=== PATIENT | female | born 1965 | race Caucasian/White ===

== ENCOUNTER 2018-07-25 06:59 | Day surgery (SDC) | payer OTHER, SELFPAY ==
[2018-07-25 07:21] VITALS: BP 149/89; PULSE 69; RESP 16; TEMP 36.7; O2SAT 98; BMI 40.8
[2018-07-25 07:32] LABS: Internal QC Validated? YES +Cl - CLEAR BKGD; Pregnancy, Urine Negative Negative
--- NOTE | 2018-07-25 07:51 | H&P.OPEN ---
History of Present Illness Date of Admission: 07/25/18 The patient is a 52 year old F presents for screening for colon cancer. Patient states she has daily bowel movements denies any blood denies any abdominal pain. Patient has no immediate family history of colon cancer however her maternal uncle had it in his 50s along with maternal cousin in his 50s as well. Patient has never had a colonoscopy in the past. Past Medical/Surgical History - Planned Operation Planned Operative Procedure/s: COLONOSCOPY Date of Operative Procedure: 07/25/18 Permit Signed: Yes S.O.S: No Is This Patient Having a Total Joint: No - Previous Hospitalizations/Surgeries HX Hospitalizations: No HX of Surgeries: TONSILS Any Problems With Anesthesia: No You/Your Family Experience Fever (Hyperthermia) With Anes: No Cholinesterase deficiency: No - Cardiovascular Hx Chest Pain within Last 2 months: No Hx of Irregular Heartbeat and/or Afib: No Hx Heart Attack: No Hx Congestive Heart Failure: No Hx Rheumatic Fever: No Hx Hypertension: No Hx Internal Defibrillator: No Hx Pacemaker: No Hx Cardiac Catheterization: No Hx Cardiac Surgery/Stents/Etc.: No Hx Stress Test: No HX Edema: Yes - JENNI ANKLES Hx Pain in Legs when Walking/Leg Cramps: No - Respiratory Chronic Cough: No HX of Shortness of Breath: No Hoarseness: No Hx Chronic Obstructive Pulmonary Disease (COPD): No Hx Asthma: No Hx Emphysema: No Hx Sleep Apnea: No Hx Oxygen Use at Home: No Hx Respiratory Tract Infection/Cold (presently): No Do You Snore Loudly (louder than talking or can be heard): No Do You Often Feel Tired/ Fatigued/ Sleepy Dring Daytime?: No Has Anyone Observed You Stop Breathing During Sleep?: No Result (for STOP score): Negative Hx Smoking: No Smoking Status: Never smoker - Gastrointestinal Hx Gastroesophageal Reflux: No Hx Gastrointestinal Disorders: No Hx Gastrointestinal Bleed: No Hx Ulcer: No Hx Hiatal Hernia: No Difficulty Chewing/Swallowing: No Recent Onset of Swallowing Problems: No Special diet followed at home: No Hx Unplanned Weight Loss of 20#: No HX Unplanned Weight Gain of 20#: No - Neurological Hx Seizures: No HX Syncope/Blackout Spells/Unconsciousness: No Hx CVA/Stroke: No Hx Transient Ischemic Attacks (TIA): No Hx Multiple Sclerosis: No Hx Parkinson's Disease: No Hx Head/Neck Injury: No Hx Headaches: No Hx Back Injury/Pain: Yes - SEE'S CHIROPRACTOR ROUTINELY Recent Onset of Speech Difficulty: No Restless Legs: No Does patient have nerve stimulator: No - Blood Disorder Hx Leukemia: No Bleeding Tendencies: No Hx Deep Vein Thrombosis: No Hx High Cholesterol: No Blood Transmitted Disease: No Hx Hepatitis: No Hx Cirrhosis: No Hx Anemia: No Hx Blood Disorders: No - Reproduction : No Is Patient Lactating: No Hx Hysterectomy: No Hx Tubal Ligation: No Are You Post Menopause: No Pt Instructed Not To Have Any Sex From Now Until Surgery: No - Genitourinary Hx Renal Disease: No - Musculoskeletal Hx Arthritis: No Hx Rheumatoid Arthritis: No Hx Gout: No Recent Onset of an Orthopedic Problem: Yes - L LEG ONLY BENDS SO FAR-ASK PT! - Endocrine Hx Diabetes: No Thyroid Disease: No Hx Steroid Therapy: No - Psycho/Social Hx Substance Use: No Hx Alcohol Use: No Hx Anxiety: No Hx Depression: No Mental Illness: No Hx Dementia: No - Miscellaneous Hx Cancer: No Recent Exposure to Contagious Disease: No Active MRSA: No Hx of C-Diff: No Any Loose Teeth: No Allergies No Known Allergies Allergy (Verified 07/20/18 11:21) - Discharge Is Pt Admitted From a Alf, or a Custodial: No Who Could Help: SISTER After D/C, Where Do you Plan to Go: Return Home - Physical Exam General: Alert, Oriented x3, Cooperative, No apparent distress HEENT: Atraumatic Lungs: Normal air movement Cardiovascular: Regular rate Abdomen: Soft, Non Tender - No peritoneal signs, Non-Distended Extremities: No clubbing, No cyanosis, No edema Skin: No rashes Neurological: Cranial nerves II-XII grossly intact Psych/Mental Status: Normal Affect Vital Signs Temp Pulse Resp BP Pulse Ox 98.1 F 69 16 149/89 H 98 07/25/18 07:21 07/25/18 07:21 07/25/18 07:21 07/25/18 07:21 07/25/18 07:21 Oxygen Delivery Method Room Air Weight: 253 lb 4.978 oz Body Mass Index (BMI) 40.8 Laboratory Tests Past 24 Hrs 07/25/18 07:08 Urine Test Negative Assessment/Plan 52-year-old female for screening for colon cancer Surgery Risks - Colonoscopy I discussed with the patient the risks of the procedure: Yes Risks Include but are not Limited To: Risks include but are not limited to: Bleeding, perforation requiring further surgery, inability to complete colonoscopy requiring barium enema. Patient no further questions at this time.
[2018-07-25 08:21] VITALS: BP 137/91; BP 148/89; PULSE 78; RESP 16; TEMP 36.2; O2SAT 96
[2018-07-25 08:26] VITALS: BP 140/94; BP 148/89; PULSE 67; RESP 16; O2SAT 95
[2018-07-25 08:31] VITALS: BP 147/93; BP 148/89; PULSE 60; RESP 16; O2SAT 95
[2018-07-25 08:36] VITALS: BP 136/91; BP 148/89; PULSE 67; RESP 16; TEMP 36.6; O2SAT 98
[2018-07-25 08:55] VITALS: BP 148/89
--- NOTE | 2018-07-30 10:25 | OP.ENDO_ITS ---
Patient Name: Whit Mackenzie Procedure Date: 07/25/2018 7:26 AM Date of : 1965 Age: 52 Procedure: Colonoscopy Indications: Screening for colorectal malignant neoplasm Providers: Lona Birmingham MD Referring MD: Sheri Tobias Medicines: Monitored Anesthesia Care Patient Profile: This is a 52 year old female. Last Colonoscopy: none. The patient's first colonoscopy is today. Complications: No immediate complications. Procedure: Pre-Anesthesia Assessment: - Prior to the procedure, a History and Physical was performed, and patient medications and allergies were reviewed. The patient's tolerance of previous anesthesia was also reviewed. The risks and benefits of the procedure and the sedation options and risks were discussed with the patient. All questions were answered, and informed consent was obtained. Prior Anticoagulants: The patient has taken no previous anticoagulant or antiplatelet agents. ASA Grade Assessment: III - A patient with severe systemic disease. After reviewing the risks and benefits, the patient was deemed in satisfactory condition to undergo the procedure. After I obtained informed consent, the scope was passed under direct vision. Throughout the procedure, the patient's blood pressure, pulse, and oxygen saturations were monitored continuously. The colonoscope was introduced through the anus and advanced to the cecum, identified by the appendiceal orifice, ileocecal valve and palpation. The colonoscopy was performed without difficulty. The patient tolerated the procedure well. The quality of the bowel preparation was good. Scope In: 7:59:17 AM Scope Withdrawal Time 0 hours 8 minutes 26 seconds Scope Out: 8:16:44 AM Total Procedure Duration Time 0 hours 17 minutes 27 seconds Findings: The entire examined colon appeared normal on direct and retroflexion views. The perianal and digital rectal examinations were normal. Impression: - The entire examined colon is normal on direct and retroflexion views. - No specimens collected. Recommendation: - Discharge patient to home. - Continue present medications. - Repeat colonoscopy in 10 years for screening purposes. Procedure Code(s): --- Professional --- G0121, PT, Colorectal cancer screening; colonoscopy on individual not meeting criteria for high risk CPT copyright 2017 [employer] [place] [employer]. All rights reserved. The codes documented in this report are preliminary and upon toll transmission worker review may be revised to meet current compliance requirements. MD Lona Simons MD 07/25/2018 8:22:02 AM This report has been signed electronically. Number of Addenda: 0 Note Initiated On: 07/25/2018 7:26 AM
--- OUTSIDE RECORDS SUMMARY | 2018-09-28 22:19 | XMS RPT_ITS ---
:1965 Author Organization [facility] Care Team Providers Name Role Phone Lona Birmingham Attending Unavailable Lona Birmingham Referring Unavailable Malys, Sheri Primary Care Unavailable Lona Birmingham Attending Unavailable Robotham, Lona Referring Unavailable Malys, Sheri Primary Care Unavailable Robotrobert, Lona Consulting Unavailable Nurse, Surgery Attending Unavailable Malys, Sheri Referring Unavailable PROBLEMS PROBLEMS No Problem Records FoundPROCEDURES PROCEDURES No Procedure Records FoundRESULTS RESULTS OPERATIVE REPORT - Observed: 07/30/2018 Status: F Source: [place] [facility] 11:22 AM [facility] [place] REPOSITORY [facility] Medical Records Department [address] [place] [address] Operative Report - Endoscopy MR#: [id number] Acct: [id number] Name: DAVID CRAVEN Rep #: [id number] : 1965 52 From: Lona Birmingham MD PCP: Sheri Tobias DO Status: [facility] Patient Name: David Craven Procedure Date: 07/25/2018 7:26 AM Date of : 1965 Age: 52 Procedure: Colonoscopy Indications: Screening for colorectal malignant neoplasm Providers: Lona Birmingham MD Referring MD: Sheri Tobias Medicines: Monitored Anesthesia Care Patient Profile: This is a 52 year old female. Last Colonoscopy: none. The patient's first colonoscopy is today. Complications: No immediate complications. Procedure: Pre-Anesthesia Assessment: - Prior to the procedure, a History and Physical was performed, and patient medications and allergies were reviewed. The patient's tolerance of previous anesthesia was also reviewed. The risks and benefits of the procedure and the sedation options and risks were discussed with the patient. All questions were answered, and informed consent was obtained. Prior Anticoagulants: The patient has taken no previous anticoagulant or antiplatelet agents. ASA Grade Assessment: III - A patient with severe systemic disease. After reviewing the risks and benefits, the patient was deemed in satisfactory condition to undergo the procedure. After I obtained informed consent, the scope was passed under direct vision. Throughout the procedure, the patient's blood pressure, pulse, and oxygen saturations were monitored continuously. The colonoscope was introduced through the anus and advanced to the cecum, identified by the appendiceal orifice, ileocecal valve and palpation. The colonoscopy was performed without difficulty. The patient tolerated the procedure well. The quality of the bowel preparation was good. Scope In: 7:59:17 AM Scope Withdrawal Time 0 hours 8 minutes 26 seconds Scope Out: 8:16:44 AM Total Procedure Duration Time 0 hours 17 minutes 27 seconds Findings: The entire examined colon appeared normal on direct and retroflexion views. The perianal and digital rectal examinations were normal. Impression: - The entire examined colon is normal on direct and retroflexion views. - No specimens collected. Recommendation: - Discharge patient to home. - Continue present medications. - Repeat colonoscopy in 10 years for screening purposes. Procedure Code(s): --- Professional --- G0121, PT, Colorectal cancer screening; colonoscopy on individual not meeting criteria for high risk CPT copyright 2017 [employer]. All rights reserved. The codes documented in this report are preliminary and upon tax lawyer review may be revised to meet current compliance requirements. MD Lona Simons MD 07/25/2018 8:22:02 AM This report has been signed electronically. Number of Addenda: 0 Note Initiated On: 07/25/2018 7:26 AM 07/25/18 1452 Date Lona Birmingham MD Cosigner Signature: Date (if indicated) CC: Sheri Tobias DO; Lona Birmingham MD Date Dictated: 07/25/18 0726 Date Transcribed: Wrapper Operator: TR Signed HISTORY AND PHYSICAL Observed: 07/25/2018 Status: F Source: [place] [facility] 7:53 AM [facility] [place] RE[facility]IT[facility] Medical Records Department [address] [place] [address] [place] [address] History and Physical 07/25/18 0751 MR#: [id number] Acct: [id number] Name: HERBERDAVID Bev Rep #: [id number] : 1965 52 From: Lona Birmingham MD PCP: Sheri Tobias DO Status: [facility] Location: [place] [address] History of Present Illness Date of Admission: 07/25/18 The patient is a 52 year old F presents for screening for colon cancer. Patient states she has daily bowel movements denies any blood denies any abdominal pain. Patient has no immediate family history of colon cancer however her maternal uncle had it in his 50s along with maternal cousin in his 50s as well. Patient has never had a colonoscopy in the past. Past Medical/Surgical History - Planned Operation Planned Operative Procedure/s: COLONOSCOPY Date of Operative Procedure: 07/25/18 Permit Signed: Yes S.O.S: No Is This Patient Having a Total Joint: No - Previous Hospitalizations/Surgeries HX Hospitalizations: No HX of Surgeries: TONSILS Any Problems With Anesthesia: No You/Your Family Experience Fever (Hyperthermia) With Anes: No Cholinesterase deficiency: No - Cardiovascular Hx Chest Pain within Last 2 months: No Hx of Irregular Heartbeat and/or Afib: No Hx Heart Attack: No Hx Congestive Heart Failure: No Hx Rheumatic Fever: No Hx Hypertension: No Hx Internal Defibrillator: No Hx Pacemaker: No Hx Cardiac Catheterization: No Hx Cardiac Surgery/Stents/Etc.: No Hx Stress Test: No HX Edema: Yes - JENNI ANKLES Hx Pain in Legs when Walking/Leg Cramps: No - Respiratory Chronic Cough: No HX of Shortness of Breath: No Hoarseness: No Hx Chronic Obstructive Pulmonary Disease (COPD): No Hx Asthma: No Hx Emphysema: No Hx Sleep Apnea: No Hx Oxygen Use at Home: No Hx Respiratory Tract Infection/Cold (presently): No Do You Snore Loudly (louder than talking or can be heard): No Do You Often Feel Tired/ Fatigued/ Sleepy Dring Daytime?: No Has Anyone Observed You Stop Breathing During Sleep?: No Result (for STOP score): Negative Hx Smoking: No Smoking Status: Never smoker - Gastrointestinal Hx Gastroesophageal Reflux: No Hx Gastrointestinal Disorders: No Hx Gastrointestinal Bleed: No Hx Ulcer: No Hx Hiatal Hernia: No Difficulty Chewing/Swallowing: No Recent Onset of Swallowing Problems: No Special diet followed at home: No Hx Unplanned Weight Loss of 20#: No HX Unplanned Weight Gain of 20#: No - Neurological Hx Seizures: No HX Syncope/Blackout Spells/Unconsciousness: No Hx CVA/Stroke: No Hx Transient Ischemic Attacks (TIA): No Hx Multiple Sclerosis: No Hx Parkinson's Disease: No Hx Head/Neck Injury: No Hx Headaches: No Hx Back Injury/Pain: Yes - SEE'S CHIROPRACTOR ROUTINELY Recent Onset of Speech Difficulty: No Restless Legs: No Does patient have nerve stimulator: No - Blood Disorder Hx Leukemia: No Bleeding Tendencies: No Hx Deep Vein Thrombosis: No Hx High Cholesterol: No Blood Transmitted Disease: No Hx Hepatitis: No Hx Cirrhosis: No Hx Anemia: No Hx Blood Disorders: No - Reproduction : No Is Patient Lactating: No Hx Hysterectomy: No Hx Tubal Ligation: No Are You Post Menopause: No Pt Instructed Not To Have Any Sex From Now Until Surgery: No - Genitourinary Hx Renal Disease: No - Musculoskeletal Hx Arthritis: No Hx Rheumatoid Arthritis: No Hx Gout: No Recent Onset of an Orthopedic Problem: Yes - L LEG ONLY BENDS SO FAR-ASK PT! - Endocrine Hx Diabetes: No Thyroid Disease: No Hx Steroid Therapy: No - Psycho/Social Hx Substance Use: No Hx Alcohol Use: No Hx Anxiety: No Hx Depression: No Mental Illness: No Hx Dementia: No - Miscellaneous Hx Cancer: No Recent Exposure to Contagious Disease: No Active MRSA: No Hx of C-Diff: No Any Loose Teeth: No Allergies No Known Allergies Allergy (Verified 07/20/18 11:21) - Discharge Is Pt Admitted From a Longterm, or a Mcc: No Who Could Help: SISTER After D/C, Where Do you Plan to Go: Return Home - Physical Exam General: Alert, Oriented x3, Cooperative, No apparent distress HEENT: Atraumatic Lungs: Normal air movement Cardiovascular: Regular rate Abdomen: Soft, Non Tender - No peritoneal signs, Non-Distended Extremities: No clubbing, No cyanosis, No edema Skin: No rashes Neurological: Cranial nerves II-XII grossly intact Psych/Mental Status: Normal Affect Vital Signs Temp Pulse Resp BP Pulse Ox 98.1 F 69 16 149/89 H 98 07/25/18 07:21 07/25/18 07:21 07/25/18 07:21 07/25/18 07:21 07/25/18 07:21 Oxygen Delivery Method Room Air Weight: 253 lb 4.978 oz Body Mass Index (BMI) 40.8 Laboratory Tests Past 24 Hrs Urine Test Negative Assessment/Plan 52-year-old female for screening for colon cancer Surgery Risks - Colonoscopy I discussed with the patient the risks of the procedure: Yes Risks Include but are not Limited To: Risks include but are not limited to: Bleeding, perforation requiring further surgery, inability to complete colonoscopy requiring barium enema. Patient no further questions at this time. 07/25/18 0753 <Electronically signed by Lona Birmingham MD> Date Lona Birmingham MD Cosigner Signature: Date (if applicable) CC: Sheri Tobias DO; Lona Birmingham MD Signed ,URINE Collected: 07/25/2018 Status: F Source: [place] 7:08 AM [facility] REPOSITORY Order Comment: Reason for Laboratory Test PRE-OP TYPE CODE TESTS RESULT OUT OF REFERENCE UNITS RANGE LAB L400.8000 Negative Normal HCGUQUAL Negative Result Comment: Very dilute urine specimens, as indicated by a low specific gravity, may not contain guest services representative levels of hCG. If is still suspected, a first morning urine specimen should be collected 48 hours later and tested. Performed By: #### [id number] #### [facility] [address] [place], [address] ALLERGIES ALLERGIES DATE TYPE / CODE NAME / CODE REACTION SEVERITY SOURCE 07/20/2018 Drug No Known Unknown [facility] Allergy/4160 Allergies/F00 Hospital 27986(SNOMED [id number](RXNOR Repository CT) M) ENCOUNTERS ENCOUNTERS ADMIT/DISCHARGE ACCOUNT ADMITTING ENCOUNTER LOCATION SOURCE NUMBER CLASS 07/25/2018 [id number] Ambulatory BMSBuilding:B Jany 1 [place].CF.[facility] Repository 07/25/2018/ [id number] Ambulatory [place] Jany 9 8 [facility] ing:ENRoom: Repository AC11 06/11/2018/ [id number] Ambulatory BMSBuilding:B Jany 8 0 MS.[facility] Repository PAYERS PAYERS ENCOUNTER GUARANTOR PAYER SUBSCRIBER SOURCE 07/25/2018 DAVID [id number] Insurance:[facility]: [facility] icy Number: [id number] [id number] [facility] , [place] [address]Ozy: Date:[id number], [place] () [address]WP: 07/25/2018 Secondary NOT GIVENUNK Jany Insurance:SELF PAY [facility] Number: Effective Repository Date:2018-07-25 07/25/2018 DAVID [id number] S Insurance:[facility]: [facility] icy Number: [id number] Health Systems [id number] [facility] , [place] [address]Afj: Date:[id number] [address] [place] [address] () [phone]: 07/25/2018 Secondary NOT GIVENUNK Jany Insurance:SELF PAY [facility] Number: Effective Repository Date:2018-06-11 06/11/2018 DAVID Pablo Primary DAVID [id number] Insurance:[employer] MILLERDOB: [facility] icy Number: [id number] RD[place] [id number] [place], [place] [address]Bao: Date:1559-93-94[address], [place] ) [phone]: 06/11/2018 Secondary NOT GIVENUNK [place] Insurance:SELF PAY [facility] Number: Effective Repository Date:2018-06-11
== END 2018-07-25 09:23 | disposition home or self-care (01) ==
LOC: EN 07:00 → AC 07:02
PROVIDERS: Anesthesiology; Family Provider Family Medicine; PCP Family Medicine; Referring Provider Surgery; Visit Provider Surgery
PROC: 0DJD8ZZ Inspection of Lower Intestinal Tract, Via Natural or Artificial Opening Endoscopic (ICD-10-PCS; CPT 45378; principal; 2018-07-25 07:55)
DX: Z12.11 Encounter for screening for malignant neoplasm of colon (principal)
CPT/HCPCS: 45378; 81025; J7120

== ENCOUNTER → 2019-05-23 08:05 | Outpatient (CLI) | payer OTHER, SELFPAY ==
--- NOTE | 2019-05-23 08:07 | BI_ITS ---
MAMMOGRAPHY - BILATERAL SCREENING REASON FOR EXAM: Female, 53 years old. Routine annual screening examination. PERTINENT HISTORY: Non-contributory. TECHNIQUE: Digital bilateral breast sekou (3D mammographic acquisition) in the CC and MLO projections. 2-D mediolateral oblique (MLO) and craniocaudad (CC) views of both breasts were obtained. CAD: Full Field Digital Mammography with Computer Added Detection was performed. COMPARISON: Comparison is made with prior study dated May 27, 2017 and October 03, 2014. FINDINGS: Breast Composition: The breasts are almost entirely fatty. There are no dominant masses or suspicious calcifications. Stable benign-appearing right axillary lymph nodes. No other significant abnormalities are identified. There has been no significant change since the prior study. BI/SCREEN MAMM (CAD) W/SEKOU BILAT IMPRESSION: Stable bilateral screening mammogram. Yearly follow-up mammogram recommended. (A) ASSESSMENT CATEGORY: BIRADS Category 2: Benign. A letter regarding these results will be sent to the patient by the facility within 30 days. Approximately 10% of breast cancers are not detected by mammography. A normal mammogram should not delay biopsy of a clinically suspicious abnormality. [id number] Electronically Signed: Elpidio Berkowitz, at 9:35 EST , Service support ,
--- NOTE | 2019-05-23 08:26 | RAD_ITS ---
HISTORY: Pain in left hip for sometime getting worse. Pain in lower back at times with stiffness. No known injury. 7 views of the lumbar spine. These include AP, bilateral oblique, coned-down lateral of the L5-S1 interspace, neutral lateral, flexion lateral, and extension lateral. No prior imaging of the lumbar spine. Findings: In the neutral image L4 is anteriorly subluxed on L5 by 3 mm. This remains constant in the extension image but may be slightly accentuated in the flexion image. In the flexion image there is an evoked anterior subluxation of L3 on L4 and minimally L2 on L3. In the flexion image there is the production of disc gas phenomenon, likely due to vacuum phenomenon of the flexion. The gas once again likely become soluble with the neutral and the extension image. Vertebral body height is well preserved. Endplate sclerosis with enthesophytes are present at many levels. There is some facet arthropathy. This is greatest at the lower lumbar spine. No fractures are perceived. Bowel gas pattern is normal. RAD/L/S Spine Comp/w Bending Views IMPRESSION: Multilevel degenerative disc disease. Anterior enthesophytes. Mild subluxation of L3 on L4 and L2 on L3 accentuated with flexion and reduced with extension and neutral. at 2216 Reported and signed by: Jignesh Spear MD Electronically Signed: Jignesh Spear MD at 22:15 EST Tel , Service support ,
--- NOTE | 2019-05-23 08:56 | RAD_ITS ---
HISTORY: Pain in left hip for sometime getting worse. Pain in lower back at times with stiffness. Exam is AP pelvis and 2 views of the left hip. No prior imaging of the left hip. Findings: Severe osteoarthritis is present within the left hip. This arthritis is manifested by bony remodeling, [id number] sclerosis with obliteration of the joint space, osteophytes, and large subcortical cystic degenerative change both within the acetabulum and the femoral head. The femoral head is subluxed superior and lateral in the left acetabulum due to the chronicity of the disease. There is some arthritic disease within the right femoral head as well. Pelvic phleboliths are present. RAD/HIP, UNI W/ Pelvis 2-3 Views IMPRESSION: Severe left hip arthritis with bony remodeling and superior and lateral subluxation of the left femoral head with remodeling to the left acetabulum at 0102 Reported and signed by: Jignesh Spear MD Electronically Signed: Jignesh Spear MD at 1:01 EST Tel , Service support ,
== END ==
PROVIDERS: Family Provider Family Medicine; PCP Family Medicine; Referring Provider Family Medicine; Visit Provider Family Medicine
DX: Z12.31 Encounter for screening mammogram for malignant neoplasm of breast (principal); M16.12 Unilateral primary osteoarthritis, left hip; M54.5 Low back pain; R29.898 Other symptoms and signs involving the musculoskeletal system
CPT/HCPCS: 72114; 73502; 77063; 77067

== ENCOUNTER → 2019-06-20 10:45 | Outpatient (CLI) | payer OTHER, SELFPAY ==
--- NOTE | 2019-06-20 10:48 | MRI_ITS ---
STUDY: MRI LUMBAR SPINE WITHOUT CONTRAST REASON FOR EXAM: Female, 53 years old. Low back pain, left leg pain, left hip pain. TECHNIQUE: Standardized fat and water weighted pulse sequences were obtained in the sagittal and axial planes. COMPARISON: X-ray 05/23/2019 FINDINGS: T12-L1: Normal endplates. Normal disc height, hydration and morphology. Normal bilateral facet joints. Normal central canal and bilateral lateral recesses. Normal bilateral intervertebral neural foramina. Normal lumbar lordosis. There is no substantial scoliosis. Normal conus medullaris that terminates at the L1/L2. L1-2: Normal endplates. Normal disc height, hydration and morphology. Normal bilateral facet joints. Normal central canal and bilateral lateral recesses. Normal bilateral intervertebral neural foramina. L2-3: Mild bilobed disc protrusion produces mild spinal stenosis and mild bilateral neural foraminal stenosis. L3-4: Mild bilateral facet hypertrophy and ligament flavum hypertrophy. Mild broad disc protrusion asymmetric to the left produces mild spinal stenosis with mild bilateral lateral recess stenosis, mild right neural foraminal stenosis, and moderate left neural foraminal stenosis with abutment of the exiting left L3 nerve root laterally. L4-5: Mild bilateral facet hypertrophy and ligament flavum hypertrophy. Mild broad disc protrusion produces mild spinal stenosis with mild bilateral lateral recess stenosis and mild bilateral neural foraminal stenosis. L5-S1: Mild bilateral facet hypertrophy. Mild broad disc protrusion produces mild spinal stenosis and mild bilateral neural foraminal stenosis. Normal visualized sacral ala. Normal visualized paraspinous soft tissue structures. MRI/Spine Lumbar (Routine) IMPRESSION: Mild diffuse degenerative disc disease as described above. Electronically Signed: Pierce West MD at 16:42 EST Tel , Service support ,
== END ==
PROVIDERS: Family Provider Family Medicine; PCP Family Medicine; Referring Provider Family Medicine; Visit Provider Family Medicine
DX: M54.16 Radiculopathy, lumbar region (principal)
CPT/HCPCS: 72148

== ENCOUNTER → 2019-08-07 08:03 | Outpatient (CLI) | payer OTHER, SELFPAY ==
[2019-08-01 10:22] VITALS: BMI 42.7
--- NOTE | 2019-08-07 08:05 | CT_ITS ---
STUDY: CT SCAN LOWER EXTREMITY WITHOUT IV CONTRAST LEFT REASON FOR EXAM: Female, 53 years old. Left hip osteoarthritis, pain x years, no known injury. [facility] protocol. RADIATION DOSAGE (If Supplied By Facility): CTDIvol = ( 26.88 ) mGy, DLP = ( 1757.71 ) mGycm. Individualized dose optimization techniques were used for this CT.? TECHNIQUE: Multiple axial tomographic images were obtained of both hip joints as well as the knee joints. Coronal and sagittal reconstructions obtained as well. The DANELLE protocol was followed. COMPARISON: None. FINDINGS: This appearance of the degenerative changes of both sacroiliac joints worse on the right side with the spur formation along the iliac aspect of the joint. Marked degree of osteoarthritis of the left hip joint with subchondral cysts worse in the superolateral aspect of the femoral head as well as the acetabulum. There is also evidence of an acetabular spur superiorly as well as medially. I suspect femoral acetabular impingement. The knee joints are unremarkable. CT/Extremity Lower without Contra IMPRESSION: Marked degree of osteoarthritis of the left hip joint with subchondral cysts involving the femoral head as well as the acetabulum with degenerative spurring of the acetabulum, superolaterally as well as inferomedially causing femoral acetabular impingement. Electronically Signed: Elpidio Berkowitz, at 10:37 EST , Service support ,
== END ==
PROVIDERS: PCP Family Medicine; Referring Provider Specialist; Visit Provider Specialist
DX: M16.7 Other unilateral secondary osteoarthritis of hip (principal)
CPT/HCPCS: 73700

== ENCOUNTER → 2019-08-13 08:34 | Outpatient (CLI) | payer OTHER, SELFPAY ==
[2019-08-09 14:10] VITALS: BMI 42.7
--- NOTE | 2019-08-13 08:35 | STEWCON_ITS ---
Reason For Study: Pre-OP Stress Results Protocol: Dobutamine Stress With Definity Maximum Predicted HR: 169 bpm Target HR: 144 bpm % Maximum Predicted HR: 50 % Heart Stage Duration Rate BP Dose Comment (mm:ss) (bpm) BASELINE 64 142/83 4 CC DEFINITY total for test STAGE 1 3:58 85 107/4010.0097/57 ORIGINAL BP, RECHECKED AND WAS 107/40 Noted heart rate to drop to 45, BP low, chest pain, hot and STAGE 2 3:00 51 104/4520.00funny feeling. Stopped test, Normal Saline 500cc bolus started. Paged Dr. Gomes, O2 placed at 2L NC. States feeling better, Cola given and Marleny Doones, Tolerated RECOVERY 70 120/70 well Stress Duration: 6:58 mm:ss Maximum Stress HR: 85 bpm Baseline Echocardiogram Findings Stress Echo Wall motion Data Resting WM Intermediate WM Stress WM Interpretation Summary Dobutamine stress echocardiogram. Indication: Preoperative evaluation. Stress protocol: Resting EKG demonstrates normal sinus rhythm with a rate of 60 bpm. Resting blood pressure is 142/83 mmHg. Dobutamine infusion was begun starting at 10 mcg/kg/min. It was increased in 3-minute increments to a peak of 20 mcg/kg/min. The patient maintained sinus rhythm throughout the recording. The maximum heart rate attained was 91 bpm which was 53% of maximum predicted heart rate. The test was discontinued due to patient dropping her blood pressure and becoming symptomatic and bradycardic. Patient required infusion of intravenous saline. No EKG changes were noted no chest pain was noted. Resting echocardiogram demonstrated preserved left ventricular systolic function with Definity enhancement. The estimated ejection fraction was 60%. With low-dose dobutamine the patient was noted to have a hypercontractile ventricle with a peak ejection fraction of 75%. No wall motion abnormalities were noted. Conclusion: Dobutamine stress echo with no evidence of ischemia noted at a low workload. Hypercontractile ventricle leading to hypotension. The above is a low risk stress echo. Ordering Physician: Marcello Gomes Referring Physician: Marcello Gomes Performed By: Monster Champagne [facility]
== END ==
PROVIDERS: PCP Family Medicine; Referring Provider Internal Medicine Cardiovascular Disease; Visit Provider Internal Medicine Cardiovascular Disease
DX: Z01.810 Encounter for preprocedural cardiovascular examination (principal)
CPT/HCPCS: 93017; 93350; J7040; Q9957; A4216; C8928

== ENCOUNTER 2019-08-14 06:46 | Observation (INO) | payer OTHER, SELFPAY ==
--- NOTE | 2019-07-26 06:48 | HP.PCM_ITS ---
History and Physical History and Physical Patient Name: Whit Mackenzie : 1965 From: DELANO SMALL PA-C DATE OF SURGERY: 08/14/2019 SCHEDULED PROCEDURE: left total hip arthroplasty HISTORY OF PRESENT ILLNESS: Preoperative history and physical exam was performed on July 25, 2019. This is a 53-year-old female who has had ongoing pain in her left hip for several years. It is progressively become worse over the past 6 months. Patient states pain can reach as high as a 7/10 with activities. Her pain has been intermittent and aching. Pain is increased with driving, sitting. She has start up pain. She does report catching sensation in the left hip. Patient has difficult time with activities of daily living including getting dressed and leisure activities such as watching movies or sitting to read. She has tripped secondary to her hip pain. She feels unsafe walking on uneven surfaces or inclines. Patient has tried rest, ice, elevation with minimal relief. She has been doing home exercises and veterinarian laboratory animal care with minimal relief. She has tried oral medications consisting of Tylenol and ibuprofen which only gives her temporary relief. She denies previous surgeries on the left hip. Patient denies any medical problems. There is been no chest pain, shortness of breath, fevers chills, recent infections. We are obtaining surgical clearance from the primary care physician Dr. Tobias. After failing conservative measures and discussing treatment options with Dr. Terrance Arnold, the patient does wish to proceed with a left total hip arthroplasty. REVIEW OF SYSTEMS: ROS: Const: Denies change in appetite, fever and weight change. CV: Denies chest pain, heart murmur and irregular heartbeat. Resp: Reports shortness of breath, but denies cough, pneumonia, tuberculosis and wheezing. GI: Reports nausea, but denies constipation, diarrhea, heartburn, rectal itching, bloody stools and vomiting. : Denies incontinence. Musculo: Reports leg swelling, pain, trouble walking and weakness. Skin: Denies Raynaud's, history of shingles and tattoo. Neuro: Reports difficulty with balance, dizziness, numbness/tingling and tremor but denies ambulatory dysfunction. Psych: Reports stress, but denies anxiety and insomnia. Sudeep/Lymph: Denies anemia, bleeding/bruising tendency and past transfusion. Reviewed, no changes. PAST MEDICAL HISTORY: Advance Care Plan: No Advance Directives Effective Date: 06/27/2019 PMH: Medical Problems: No Current Problems Accidents: None Surgical Hx: Tonsillectomy Anesthesia Complications: None Assistive Devices: Glasses Reviewed, no changes. 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 Personal Habits: Cigarette Use: Never Smoked Cigarettes.Smokeless Tobacco: Never Used Smokeless Tobacco.E-Cigarette Use: Never used.Alcohol: Occasionally.Drug Use: Denies Use.Enjoy Exercising: Exercises 1-3 X/Week. Reviewed, no changes. VITALS: Ht: 65 Wt: 250lb Wt k.400 BMI: 41.6 BP: 162/90 Pulse: 68 Resp: 18 T: 98.1 T: 36.7C ALLERGIES: Bees Latex MEDICATIONS: No Active Medications PRE-OP EXAM: General appearance:NORMAL Other: Eyes: Conjunctivae and lids: NORMAL Pupils: ERR Ears, Nose, Mouth, and Throat: NORMAL Other: Inspection of lips, teeth and gums: NORMAL Other: Neck: Examination of neck: no masses noted. Respiratory: Assessment of respiratory effort: NORMAL Other: Auscultation of lungs: clear to auscultation no wheezes, rhonchi or rales. Cardiovascular: Auscultation of heart: regular rate and rhythm, no murmurs, gallops or rubs. Exam of carotid arteries: NORMAL Other: Gastrointestinal: Exam of abdomen: soft, nontender, nondistended bowel sounds present. PHYSICAL EXAMINATION: Patient does walk with an antalgic gait. Patient has tenderness to palpation over the left lateral hip at the greater trochanteric bursa. Left hip range of motion: Full extension, flexion 40, internal rotation neutral, external rotation 15. Pain is increased with range of motion. Positive crepitus. 3/5 hip strength secondary to pain. Sensation intact to light touch. IMAGING STUDIES: X-rays were obtained that [facility] on July 25, 2019 including 2 views AP pelvis and AP left hip reveals bilateral hip dysplasia with degenerative changes on the right and a large cam lesion. The left hip reveal severe joint space narrowing with subchondral sclerosis, osteophyte formation, decreased acetabular coverage consistent with dysplasia and a significant leg length discrepancy. IMPRESSION: 1. Severe left hip osteoarthritis with evidence of dysplasia PLAN: Dr. Terrance Arnold did discuss and review with the patient all treatment options including surgical versus nonsurgical options. Patient does wish to proceed with the above-stated procedure. Potential risks, benefits, and complications of the procedure were discussed in detail including but not limited to , infection, nerve and blood vessel damage, persistent pain, numbness, tingling, paresthesias, blood clot, pulmonary embolism, and requirement for possible further surgery. The patient expressed full understanding and has no further questions for the doctor. Patient does agree to proceed with the above-stated procedure and has signed the surgery consent form. This dictation was created using voice recognition software. Phonetic and/or grammatical errors may exist. ___ I have re-examined the patient. There are no clinical changes since date of exam. ___ See progress notes for changes. ___ Dictated on admission Date: Time: Signature:
[2019-08-01 10:22] VITALS: BP 143/90; PULSE 62; RESP 16; TEMP 36.4; O2SAT 97; BMI 42.7
--- NOTE | 2019-08-01 10:52 | SDCEKG_ITS ---
Test Reason : Blood Pressure : / mmHG Vent. Rate : 061 BPM Atrial Rate : 061 BPM P-R Int : 198 ms QRS Dur : 098 ms QT Int : 390 ms P-R-T Axes : 037 -60 -07 degrees QTc Int : 392 ms Normal sinus rhythm Left axis deviation Inferior infarct , age undetermined T wave abnormality, consider anterior ischemia Abnormal ECG Confirmed by HI PARRA, VENTURA ([id number]), web content editor KELSEA MCINTOSH ([id number]) on 08/06/2019 12:13:27 PM Referred By: Terrance Arnold Confirmed By:VENTURA DO MD
[2019-08-01 11:07] LABS: Absolute Lymphocyte Count 1.68 X10^3/uL (0.83-4.51); Absolute Neutrophil Count 2.4 X10^3/uL (2.0-7.7); Basophil# 0.03 X10^3/uL; Basophil% 0.7 % (0-1); Eosinophil# 0.12 X10^3/uL; Eosinophils% 2.6 % (0-5); Hematocrit 40.8 % (37-47); Hemoglobin 13.7 g/dL (12.0-15.0); Lymphocyte # 1.68 X10^3/ul (4.0); Lymphocyte % 36.6 % (19-41); Mean Corp Hgb Conc 33.6 g/dL (32-36); Mean Corpuscular Hgb 28.5 pg (27.0-32.0); Mean Corpuscular Volume 84.8 fL (81-99); Mean Platelet Vol. 10.2 fl (6.2-12.0); Monocyte# 0.33 X10^3/uL; Monocyte% 7.2 % (0-10); NRBC Flagged by Analyzer 0 % (0-5); Neutrophil # 2.42 X10^3/uL (2.7-7.7); Neutrophil % 52.7 % (47-70); Platelet Count 198 K/mm3 (150-450); RBC Distribution Width CV 12.5 % (11.6-14.6); RBC Distribution Width SD 38.4 fl (35.1-43.9); Red Blood Count 4.81 M/mm3 (4.2-5.4); White Blood Count 4.6 K/mm3 (4.4-11.0)
[2019-08-01 11:38] LABS: Anion Gap 3 (5-15); BUN 10 mg/dL (7-18); BUN/Creat Ratio 14.2 RATIO (10-20); Calcium,Total 8.8 mg/dL (8.5-10.1); Chloride 110 mmol/L (98-107); EST Glomerular Filtration Rate 93 mL/min (>60); Est Glom Filt Rate - Afr Amer 113 mL/min (>60); Estimated Creatinine Clearance 85.56 ml/min; Glucose 106 mg/dL (74-106); Potassium 3.9 mmol/L (3.5-5.1); Sodium Level 140 mmol/L (136-145)
[2019-08-09 14:10] VITALS: BMI 42.7
[2019-08-14] VITALS (12 sets, daily range): BP systolic 103–159; BP diastolic 64–89; PULSE 53–77; RESP 16–18; TEMP 36–36.9; O2SAT 95–100; BMI 42.7
[2019-08-14] MEDS: Scopolamine 1mg/72hr Patch 1 PATCH TD (07:00)
[2019-08-14 07:11] LABS: Bedside Glucose 87 mg/dL (70-110)
[2019-08-14 07:14] LABS: Internal QC Validated? YES +Cl - CLEAR BKGD; Pregnancy, Urine Negative Negative
[2019-08-14] MEDS: Celecoxib 200 MG Capsule 400 MG PO (07:22)
[2019-08-14] MEDS: Acetaminophen 500 MG Tablet 1000 MG PO ×3 (07:22→21:46)
[2019-08-14] MEDS: Gabapentin 600 MG Tablet PO (07:23)
[2019-08-14] MEDS: Lactated Ringers 1,000 ML 999 ML IV (07:30)
[2019-08-14] MEDS: Lactated Ringers 1,000 ML 125 ML IV ×5 (07:35→21:47)
[2019-08-14] MEDS: Magnesium Sulfate 4gm/100mL 4 GM/100 ML IV.SOLN. IV (07:36)
[2019-08-14] MEDS: Scopolamine 1mg/72hr Patch 1 PATCH TRANSDERM. (08:45)
--- NOTE | 2019-08-14 08:45 | RAD_ITS ---
CLINICAL HISTORY: TOT. ANTERIOR HIP. 4 IMAGES, 13 SEC. FL COMPARISON: None. TECHNIQUE: 4 image(s) of total left hip arthroplasty performed by Physician: Terrance Arnold were submitted for evaluation. 13 seconds of fluoroscopy was obtained. FINDINGS: 4 fluoroscopic images of the total left hip arthroplasty are provided. Prosthesis appears in anatomic position. The visualized osseous structures are unremarkable. The soft tissues are unremarkable. RAD/Hip 1 view with Pelvis IMPRESSION: 4 fluoroscopic images of the total left hip arthroplasty are provided. Please see associated operative report for further details. Electronically Signed: Cristofer Hall, at 18:22 EST Tel , Service support ,
[2019-08-14] MEDS: Cefazolin 2 GM in 0.9% Normal Saline 100 ML IV (09:18)
[2019-08-14] MEDS: dexAMETHasone 10 MG/ML Vial IV (09:45)
--- NOTE | 2019-08-14 11:19 | PCM.OPRPT ---
Report of Operation Date of Procedure: 08/14/19 Pre-Operative Diagnosis: Left hip dysplasia with secondary osteoarthritis Post-Operative Diagnosis: Left hip dysplasia with secondary osteoarthritis Surgery/Procedure Performed:: Direct anterior minimally invasive robotic assisted total hip replacement Description of Surgical Findings:: Stable hip. Leg lengths were equal on radiograph. tuber machine operator helper: Humera Núñez Type of Anesthesia:: Spinal Anesthesiologist: Ha Carranza Special Medications: 2 g Ancef, 1 g TXA at incision, 1 g TXA closure, 10 mg Decadron, joint cocktail (5 mg Duramorph, 30 mL of 0.5% Ropivicaine, 1000 units of epinephrine, 30 mg of Toradol) Specimen's removed: Bony cuts Estimated Blood Loss (mL): 250 Fluids Replaced: 1000 mL crystalloid Description of Procedure: Components used: 1. Accolade 2 Horace femoral stem size 4 132? 2. Jasper trident 2 acetabular shell size 52 mm 3. Horace X3 polyethylene E 4. Jasper Biolox delta 36 mm, -2.5 mm femoral head Brief history operative indications: 53 yo F who failed conservative measures for their hip osteoarthritis secondary to hip dysplasia. X-rays were consistent with osteoarthritis including joint space narrowing, osteophyte formation and subchondral cysts. Total hip replacement was discussed with the patient with risks and benefits including but not limited to blood loss, DVTs, PEs, neurovascular damage, dislocation, general risks of anesthesia including loss of life. Patient demonstrated an understanding medical clearance is obtained the patient was consented for surgery. Procedure: On the date of procedure the patient's L hip was marked in the preoperative area. Patient was then taken back to the operating room where anesthesia assumed control of the C-spine and airway and administered anesthetic. Patient was transferred to the operating table and placed in the supine position. The hips were placed at the break of the bed and a sacral bump was placed. A checkpoint was placed on the tibial tubercle. The L lower extremity was then prepped out in a sterile fashion using chlorhexidine while the surgeon scrubbed. The PA was vital in the positioning of the patient. Upon reentering the room the L lower extremity was draped in the standard orthopedic fashion and the incision was marked. A timeout was called and everyone agreed upon the side, the site, the procedure be performed, antibody given, and patient's identity. 3 pins were placed in the right iliac crest with a small skin incision and blunt dissection down to the bone. After the skins were placed in a ray was placed for targeting. At this time left hip operative incision was made through skin, subcutaneous tissue, and fat down to fascia. The fascia was then incised and the TFL was retracted laterally. A retractor was placed on the lateral border of the femoral neck. Attention was directed to the inferior portion of the approach and all crossing vessels were identified and appropriately coagulated. A retractor was then placed on the medial portion of the femoral neck. The anterior capsule was then cleared of all soft tissue and then H shaped capsulotomy was made. The retractors were then placed inside the capsule. The checkpoint was placed. The checkpoints were registered. The femoral neck was identified and a cleanup cut was made. At this time a power corkscrew was used to remove the femoral head. Attention was then turned toward the acetabulum where the soft tissues were appropriately retracted and debrided. The acetabulum was registered. The robot was brought into the field sterilely and the acetabulum was reamed to 52 mm. A 52 mm cup was then selected and impacted into place. Acetabular liner was impacted into place and locking mechanism was verified. The position of the acetabular cup was then verified under live fluoroscopy. Attention was then turned to the femur. Soft tissue releases on the medial and lateral femoral neck were appropriately done, the leg was externally rotated and lateralized. A Tellez retractor was placed medially and proximally to the greater trochanter this allowed appropriate visualization and exposure of the femoral canal. Rongeour was then used to remove excess lateral bone. A canal finder and entry broach were used to open the proximal canal. Once we verified we were down the femoral canal we subsequently broached up to a size 4 femur. The appropriate neck was placed in the previously selected head was trialed with a -2.5 mm neck. Traction was pulled and the hip was reduced with internal rotation. Once it was appropriately reduced and stability was checked. There was minimal shuck, equal leg lengths and appropriate stability with hyperextension and external rotation as well as with 90? flexion and internal rotation. Fluoroscopy was then also used to verify the position of the components and leg lengths using the contralateral side for comparison. The trial components were then dislocated the proximal femur was again exposed and the components were removed from the wound. The final components were verified and opened. The wound was copiously irrigated out with normal saline. The acetabulum was checked for any residual debris. The final components were placed and impacted. Traction and internal rotation were again used to reduce the hip. After adequate reduction the hip remained stable with appropriate leg lengths. The final components were once again checked with live fluoroscopy and were found to be satisfactory. The wound was then copiously irrigated with normal saline once more, and hemostasis was obtained. Closure was then done using #1 Vicryl runner to close the fascia. A 2-0 vicryl interuppted sutures were used to close the subcutaneous skin. A 3-0 Monocryl and Steri-Strips were used for final skin closure. the pins were removed and pin sites closed. A sterile dressing was placed. Patient was awakened by anesthesia and transferred to the [facility]. Patient was then transferred to the PACU for recovery. Postoperative plan: Patient will get 24 hours postop antibiotics. Patient will get in-house physical therapy and will be weight-bear as tolerated. Patient will follow up in office in 2 weeks for a wound check and x-rays. Grafts/Implants Used: Jasper - Complications No intraoperative complications - Admit VTE Documentation VTE Present on Admission: No VTE Mechan Device Prophylaxis: SCD's, Thigh High KASHIF Hose VTE Pharm Prophylaxis ordered?: Yes
--- NOTE | 2019-08-14 12:00 | RAD_ITS ---
STUDY: X-RAY - PELVIS AND LEFT HIP REASON FOR EXAM: Female, 53 years old. POST OP, TOTAL ANTERIOR HIP REPLACEMENT LEFT TECHNIQUE: 2 views of the pelvis and hip. COMPARISON: 05/23/2019. FINDINGS: Postsurgical changes are seen over the right hip soft tissues. There is a left total hip arthroplasty. There is moderate right hip arthrosis. There is no acute fracture or dislocation identified. RAD/Hip Min 2 Views (Portable) IMPRESSION: Total left hip arthroplasty. Skin bettina are seen overlying the right pelvis. Electronically Signed: Cristofer Hall, at 18:37 EST Tel , Service support ,
[2019-08-14] MEDS: Cefazolin 1 GM/50 ML BAG IV (17:33)
[2019-08-14] MEDS: Aspirin 81 MG TAB.CHEW PO (17:34)
[2019-08-14] MEDS: Senna/Docusate Sodium 1 Tablet 2 TABLET PO (21:46)
[2019-08-15] MEDS: Cefazolin 1 GM/50 ML BAG IV (01:25)
[2019-08-15 03:19] VITALS: BP 102/59; PULSE 55; RESP 18; TEMP 36.6; O2SAT 97
[2019-08-15 05:49] LABS: Hematocrit 33.9 % (37-47); Hemoglobin 11.2 g/dL (12.0-15.0); Mean Corpuscular Hgb 28.6 pg (27.0-32.0); Mean Corpuscular Volume 86.7 fL (81-99); Mean Platelet Vol. 10.4 fl (6.2-12.0); Platelet Count 179 K/mm3 (150-450); RBC Distribution Width CV 12.8 % (11.6-14.6); RBC Distribution Width SD 40.3 fl (35.1-43.9); Red Blood Count 3.91 M/mm3 (4.2-5.4); White Blood Count 11.8 K/mm3 (4.4-11.0)
[2019-08-15] MEDS: Acetaminophen 500 MG Tablet 1000 MG PO ×2 (05:55→14:03)
[2019-08-15 05:57] LABS: Anion Gap 5 (5-15); BUN 9 mg/dL (7-18); BUN/Creat Ratio 15.5 RATIO (10-20); Calcium,Total 8.3 mg/dL (8.5-10.1); Chloride 109 mmol/L (98-107); Creatinine, Serum 0.58 mg/dL (0.55-1.02); EST Glomerular Filtration Rate 116 mL/min (>60); Est Glom Filt Rate - Afr Amer 141 mL/min (>60); Estimated Creatinine Clearance 103.26 ml/min; Glucose 106 mg/dL (74-106); Potassium 3.8 mmol/L (3.5-5.1); Sodium Level 139 mmol/L (136-145)
[2019-08-15 08:25] VITALS: BP 103/67; PULSE 60; RESP 16; TEMP 36.9; O2SAT 97
[2019-08-15] MEDS: Aspirin 81 MG TAB.CHEW PO (08:25)
[2019-08-15] MEDS: Famotidine 20 MG Tablet PO (08:26)
[2019-08-15] MEDS: Multivitamins,Therapeutic Tablet 1 TABLET PO (08:26)
[2019-08-15] MEDS: Senna/Docusate Sodium 1 Tablet 2 TABLET PO (08:26)
[2019-08-15] MEDS: Lisinopril 10 MG Tablet PO (08:26)
--- NOTE | 2019-08-15 09:52 | PN.ORTHO_ITS ---
Subjective: The patient was sitting in bedside chair upon examination. Patient denies any chest pain, shortness of breath, dizziness, lightheadedness, nausea or vomiting, or calf pain. Pain is controlled on medications. No adverse overnight events. Overall patient is doing very well. She has no significant complaints this morning. She tolerated physical therapy very well. Objective: Vital signs stable and afebrile. Patient is able to plantarflex and dorsiflex actively. Sensation is intact to light touch to saphenous, sural, superficial and deep peroneal, and tibial distribution. Dressings on bilateral hips are clean dry and intact. Negative Homans bilaterally, negative signs and symptoms of DVT. - Physical Exam Vitals/I&O's: Vital Signs Temp Pulse Resp BP Pulse Ox 97.8 F 55 L 18 102/59 L 97 08/15/19 03:19 08/15/19 03:19 08/15/19 03:19 08/15/19 03:19 08/15/19 03:19 Oxygen Flow Rate (L/min) 6 Oxygen Delivery Method Room Air Weight: 116.5 kg Body Mass Index (BMI) 42.7 Intake and Output for Last 24 Hours 08/13/19 08/14/19 08/15/19 23:59 23:59 23:59 Intake Total 5363.34 / 5363.34 1429.00 / 1429.00 Output Total 2200 / 2200 300 / 300 Balance 3163.34 / 3163.34 1129.00 / 1129.00 General: Alert, Oriented x3, Cooperative, No apparent distress Laboratory Results 08/15/19 05:28: WBC 11.8 H, RBC 3.91 L, Hgb 11.2 L, Hct 33.9 L, MCV 86.7, MCH 28.6, MCHC 33.0, RDW Std Deviation 40.3, RDW Coeff of Kimmy 12.8, Plt Count 179, MPV 10.4 08/15/19 05:28: Sodium 139, Potassium 3.8, Chloride 109 H, Carbon Dioxide 25.0, Anion Gap 5, BUN 9, Creatinine 0.58, Estim Creat Clear Calc 103.26, Est GFR (MDRD) Af Amer 141, Est GFR (MDRD) Non-Af 116, BUN/Creatinine Ratio 15.5, Glucose 106, Calcium 8.3 L Current Medications Acetaminophen (Tylenol) 1,000 mg PO Q8 [facility] Last Admin: 08/15/19 05:55 Dose: 1,000 mg Documented by: Aspirin (Aspirin, Baby) 81 mg PO BIDCM [facility] Last Admin: 08/15/19 08:25 Dose: 81 mg Documented by: Enteral Nutritional Formula (Ensure Surgery) 237 ml PO TIDCM [facility] Last Admin: 08/15/19 08:27 Dose: Not Given Documented by: Famotidine (Pepcid) 20 mg PO DAILY [facility] Last Admin: 08/15/19 08:26 Dose: 20 mg Documented by: Ketorolac Tromethamine (Toradol (Bkc)) 15 mg IV Q6H PRN PRN PRN Reason: Pain Score 1-5/10 Stop: 08/16/19 06:49 Lisinopril (Zestril) 10 mg PO DAILY [facility] Last Admin: 08/15/19 08:26 Dose: 10 mg Documented by: Meloxicam (Mobic) 7.5 mg PO BID [facility] Morphine Sulfate () 2 - 4 mg IV Q2H PRN PRN PRN Reason: Pain Score 4-10/10 Morphine Sulfate () 2 - 4 mg IV Q2H PRN PRN PRN Reason: Pain Score 4-10/10 Multivitamins (Multivitamin) 1 tablet PO DAILY@0800 [facility] Last Admin: 08/15/19 08:26 Dose: 1 tablet Documented by: Ondansetron HCl (Zofran) 4 mg IV Q8H PRN PRN PRN Reason: NAUSEA Oxycodone HCl (Oxyir) 5 - 10 mg PO Q4H PRN PRN PRN Reason: Pain Score 4-10/10 Promethazine HCl (Phenergan) 12.5 mg IM Q6H PRN PRN; Protocol PRN Reason: NAUSEA/VOMITING Senna/Docusate Sodium (Senokot-S, Gertrudis-Colace) 2 tablet PO BID [facility] Last Admin: 08/15/19 08:26 Dose: 2 tablet Documented by: Sodium Chloride () 10 - 40 ml IV UD PRN PRN Reason: SALINE FLUSH Medical Necessity - Tobacco Use Smoking Status: Never smoker Tobacco Use: Non-smoker Assessment/Plan All Active Problems (Last Reviewed 08/09/19 @ 14:14 by Marcello Gomes MD) Encounter for pre-operative cardiovascular clearance (Acute) Abnormal electrocardiogram (Acute) Elevated blood pressure reading in office without diagnosis of hypertension (Acute) 1. S/P left robotic direct anterior total hip arthroplasty POD #1 2. Continue Pain Medications: Tylenol and OxyIR, also on meloxicam 3. DVT Prophylaxis: Aspirin 81 mg twice daily for 4 weeks postoperatively 4. PT/OT: Weightbearing as tolerated 5. H & H: 11.2/33.9, asymptomatic 6. Reactive leukocytosis: Currently 11.8, afebrile. Patient did receive Decadron intraoperatively 7. Encouraged Incentive Spirometry 8. Disposition: Orthopedically stable, plan will be for discharge home this afternoon. Patient has outpatient physical therapy established. Patient will follow-up per postop instructions. Prescriptions will be E scribed to [facility]. I have reviewed the [place] Automated Rx Reporting System (OARRS) report for this patient for refill pattern and other prescriber involvement as part of the appropriate surveillance for the provision of acute and chronic controlled medications. The report was requested and reviewed on the date of this entry and was considered in the prescribing process.
--- NOTE | 2019-08-15 09:55 | CASEMGMT ---
RN KAYLA Face to Face with patient for initial transition planning/care coordination assessment. RN CM introduced self and role at [facility]. Patient sitting in chair, alert and oriented. Patient willing to participate in assessment and is able to answer all questions appropriately. Care providers, pharmacy, and demographics verified. Patient wishes to discharge home and is setup with [facility] for outpatient therapy. Patient states she has no further needs or concerns at this time. CM to follow for discharge planning needs that may arise. PCP: Jatinder Specialists: Clayton Lundberg Pharmacy: [email or web address] at discharge. Insurance: [employer] Prescription Benefit: yes Living Will/HPOA: none LNOK: sister, parents Living Arrangements: Patient lives with mother in ranch style home. Patient is independent at home prior to surgery. Transportation: sister, brothers DME/HHC: Patient has walker, shower chair, BSC, cane, grab bars at home. Patient has outpatient therapy setup at [facility] for Monday. Disposition Plan: Patient to discharge home with outpatient therapy, family support, and follow-up plans in place. Franca FOSTER, RN, CM
--- NOTE | 2019-08-15 10:03 | DCINST_ITS ---
Discharge Diet: No Restrictions Discharge Activity: May Not Drive - while taking narcotic pain medications. May shower in (days): 1 - Dressing must be intact to skin, turn dressing away from water Ice area for (Minutes): 20 - Every 1-2 hours while awake Weight Bearing Status: Weight bearing as tolerated Elevate: Operative Extremity Additional Activity Instructions:: Wear elastic stockings for 2 weeks. DO NOT use alcohol with narcotic pain medication. DO NOT make important decisions while taking narcotic medication. If you have problems with taking your medication (rash, itching, nausea, etc.) call the office at once. Call your doctor if your incision/area has: Increased Pain/ Swelling, Increased Redness, Foul Smelling Discharge Call your doctor if you observe: Fever of 101 or Higher Remove Dressing in (days):: 4 - Okay to remove on August 19, 2019 Additional Instructions: Follow orthopedic postop instructions Allergies/Adverse Reactions: Allergies bee venom protein (honey bee) Allergy (Verified 08/14/19 07:17) Rash latex Allergy (Verified 08/14/19 07:17) Rash Medications to take at Discharge Multivitamin [Daily Multiple Vitamin] 1 ea PO DAILY 08/01/19 calcium citrate 200 mg (950 mg) tablet 200 mg PO DAILY 08/09/19 lisinopril 10 mg tablet 10 mg PO DAILY #90 tab 08/09/19 Acetaminophen [Tylenol] 1,000 mg PO Q8 #100 tab 08/15/19 Aspirin [Aspirin, Baby] 81 mg PO BIDCM #60 tab 08/15/19 Famotidine [Pepcid] 20 mg PO DAILY #30 tab 08/15/19 Meloxicam [Mobic] 7.5 mg PO BID #60 tab 08/15/19 Oxycodone [Oxyir] 5 - 10 mg PO Q4H PRN PRN 4 Days #48 tablet 08/15/19 Senna/Docusate Sodium [Senokot-S] 2 tab PO BID #10 tab 08/15/19 The following prescriptions were given: Aspirin [Aspirin, Baby] 81 mg PO BIDCM #60 tab Transmission Status: Pending to [facility] Meloxicam [Mobic] 7.5 mg PO BID #60 tab Transmission Status: Pending to [facility] Oxycodone [Oxyir] 5 - 10 mg PO Q4H PRN PRN 4 Days #48 tablet PRN Reason: Pain Score 4-10 Transmission Status: Sent to [facility] Famotidine [Pepcid] 20 mg PO DAILY #30 tab Transmission Status: Pending to [facility] Senna/Docusate Sodium [Senokot-S] 2 tab PO BID #10 tab Transmission Status: Pending to [facility] Acetaminophen [Tylenol] 1,000 mg PO Q8 #100 tab Transmission Status: Pending to [facility] Primary Care Physician: Sheri Tobias DO [Primary Care Provider] - Test Results: Test results from this visit will be discussed in further detail at your follow- up appointment, if applicable. Please Follow Up With: Physical Therapy When: 08/19/19 Please Follow Up With: Mekhi Robles PA-C When: 08/28/19 @ 10:00 am
[2019-08-15 14:05] VITALS: BP 119/67; PULSE 61; RESP 18; TEMP 36.7; O2SAT 97
== END 2019-08-15 15:15 | disposition home or self-care (01) ==
LOC: MS3 09:24 → ACINP 13:28 → MS3 13:28
PROVIDERS: Anesthesiology; Admitting Provider Specialist; Family Provider Family Medicine; PCP Family Medicine; Referring Provider Specialist; Visit Provider Specialist
PROC: 8E0Y0CZ Robotic Assisted Procedure of Lower Extremity, Open Approach (ICD-10-PCS; CPT 27130; principal; 2019-08-14 08:15)
DX: M16.32 Unilateral osteoarthritis resulting from hip dysplasia, left hip (principal); R03.0 Elevated blood-pressure reading, without diagnosis of hypertension; E66.9 Obesity, unspecified; R94.31 Abnormal electrocardiogram [ECG] [EKG]; Z68.41 Body mass index [BMI] 40.0-44.9, adult; Z71.3 Dietary counseling and surveillance
CPT/HCPCS: 01214; 27130; S2900; 36415; 73501; 73502; 76000; 80048; 81025; 82962; 85025; 85027; 87081; 93005; 96361; 96365; 96366; 97116; 97162; 97166; 97530; 97535; 99218; 99251; C1776; J7120; G0378; G0379; G0463

== ENCOUNTER → 2020-05-14 11:31 | Outpatient (CLI) | payer OTHER, SELFPAY ==
[2019-08-14 13:36] VITALS: BMI 42.7
[2020-05-20 13:21] LABS: HPV Reflexed? NOT INDICATED
== END ==
PROVIDERS: PCP Family Medicine; Visit Provider Family Medicine
DX: Z12.4 Encounter for screening for malignant neoplasm of cervix (principal)
CPT/HCPCS: 88175; G0145

== ENCOUNTER → 2021-02-03 10:46 | Outpatient (CLI) | payer SELFPAY ==
[2019-08-14 13:36] VITALS: BMI 42.7
[2021-02-03 11:38] LABS: Absolute Lymphocyte Count 3.12 X10^3/uL (0.83-4.51); Absolute Neutrophil Count 6.5 X10^3/uL (2.0-7.7); Basophil# 0.02 X10^3/uL; Basophil% 0.2 % (0-1); Eosinophil# 0.05 X10^3/uL; Eosinophils% 0.5 % (0-5); Hematocrit 41.6 % (37-47); Hemoglobin 14.3 g/dL (12.0-15.0); Lymphocyte # 3.12 X10^3/ul (0.83-4.51); Lymphocyte % 30.5 % (19-41); Mean Corp Hgb Conc 34.4 g/dL (32-36); Mean Corpuscular Hgb 29.1 pg (27.0-32.0); Mean Corpuscular Volume 84.7 fL (81-99); Mean Platelet Vol. 9.8 fl (6.2-12.0); Monocyte# 0.49 X10^3/uL; Monocyte% 4.8 % (0-10); NRBC Flagged by Analyzer 0 % (0-5); Neutrophil % 63.6 % (47-70); Platelet Count 278 K/mm3 (150-450); RBC Distribution Width CV 12.9 % (11.6-14.6); Red Blood Count 4.91 M/mm3 (4.2-5.4); White Blood Count 10.2 K/mm3 (4.4-11.0)
[2021-02-03 11:55] LABS: AST(SGOT) 16 U/L (15-37); Alanine Aminotransfer ALT/SGPT 31 U/L (13-56); Albumin, Serum 3.4 g/dL (3.2-5.0); Alkaline Phosphatase 28 U/L (45-117); Anion Gap 5 (5-15); BUN 10 mg/dL (7-18); BUN/Creat Ratio 15.2 RATIO (10-20); Calcium,Total 8.3 mg/dL (8.5-10.1); Chloride 103 mmol/L (98-107); Creatinine, Serum 0.66 mg/dL (0.55-1.02); EST Glomerular Filtration Rate 100 mL/min (>60); Est Glom Filt Rate - Afr Amer 121 mL/min (>60); Globulin 3.3 g/dL (2.2-4.2); Glucose 89 mg/dL (74-106); Potassium 3.6 mmol/L (3.5-5.1); Protein, Total 6.7 g/dL (6.4-8.2); Sodium Level 137 mmol/L (136-145)
[2021-02-04 16:27] LABS: Cancer Antigen 125 14.6 U/mL (0.0-38.1)
== END ==
PROVIDERS: PCP Family Medicine; Referring Provider Family Medicine; Visit Provider Family Medicine
DX: L50.9 Urticaria, unspecified (principal); N83.8 Other noninflammatory disorders of ovary, fallopian tube and broad ligament; Z51.81 Encounter for therapeutic drug level monitoring
CPT/HCPCS: 36415; 80053; 85025; 86304

== ENCOUNTER → 2021-02-05 10:29 | Outpatient (CLI) | payer SELFPAY ==
[2019-08-14 13:36] VITALS: BMI 42.7
--- NOTE | 2021-02-05 10:35 | US_ITS ---
STUDY: ULTRASOUND OF THE FEMALE PELVIS - COMPLETE REASON FOR EXAM: Female, 55 years old. Pelvic pain and fullness LMP: 01/29/2021 TECHNIQUE: Transabdominal and Transvaginal TECHNICAL QUALITY: Adequate. COMPARISON: None. FINDINGS: The uterus is anteverted and is in a midline position. The uterus measures 7.6 x 4.5 x 4.1 cm. Normal uterine cervix. The endometrium measures 5 mm in thickness, and is heterogeneous (striated). There is no demonstrated endometrial mass. There is a 1.2 x 1.7 x 1.3 cm fibroid. I.U.D. - The patient does not have an I.U.D. The right ovary is visualized. The right ovary measures 3.4 x 2.6 x 1.7 cm. There is no right ovarian cyst or ovarian mass. There is no visualized right adnexal mass or complex lesion. There is normal arterial and normal venous vascularity. The left ovary is visualized. The left ovary measures 4.0 x 2.5 x 2.6 cm. There is a simple 2.4 cm cyst.. There is normal arterial and normal venous vascularity. There is no fluid in the cul-de-sac. The bladder is sonographically normal US/Transvaginal Non- IMPRESSION: Small uterine fibroid Simple left ovarian cyst No suspicious adnexal mass or free fluid No specific follow-up Electronically Signed: Jerry Santos MD at 12:23 EDT , Service support ,
--- NOTE | 2021-02-05 10:35 | US_ITS ---
STUDY: ULTRASOUND OF THE FEMALE PELVIS - COMPLETE REASON FOR EXAM: Female, 55 years old. Pelvic pain and fullness LMP: 01/29/2021 TECHNIQUE: Transabdominal and Transvaginal TECHNICAL QUALITY: Adequate. COMPARISON: None. FINDINGS: The uterus is anteverted and is in a midline position. The uterus measures 7.6 x 4.5 x 4.1 cm. Normal uterine cervix. The endometrium measures 5 mm in thickness, and is heterogeneous (striated). There is no demonstrated endometrial mass. There is a 1.2 x 1.7 x 1.3 cm fibroid. I.U.D. - The patient does not have an I.U.D. The right ovary is visualized. The right ovary measures 3.4 x 2.6 x 1.7 cm. There is no right ovarian cyst or ovarian mass. There is no visualized right adnexal mass or complex lesion. There is normal arterial and normal venous vascularity. The left ovary is visualized. The left ovary measures 4.0 x 2.5 x 2.6 cm. There is a simple 2.4 cm cyst.. There is normal arterial and normal venous vascularity. There is no fluid in the cul-de-sac. The bladder is sonographically normal US/Pelvic (Non ) IMPRESSION: Small uterine fibroid Simple left ovarian cyst No suspicious adnexal mass or free fluid No specific follow-up Electronically Signed: Jerry Santos MD at 12:23 EDT , Service support ,
== END ==
PROVIDERS: PCP Family Medicine; Referring Provider Family Medicine; Visit Provider Family Medicine
DX: N83.8 Other noninflammatory disorders of ovary, fallopian tube and broad ligament (principal); N83.202 Unspecified ovarian cyst, left side; D25.9 Leiomyoma of uterus, unspecified
CPT/HCPCS: 76830; 76856

== ENCOUNTER → 2021-04-16 10:42 | Outpatient (CLI) | payer SELFPAY ==
--- NOTE | 2021-04-16 10:48 | US_ITS ---
STUDY: ULTRASOUND OF THE FEMALE PELVIS - COMPLETE REASON FOR EXAM: Female, 55 years old. Pelvic pain and fullness LMP: Unknown. TECHNIQUE: Transabdominal and Transvaginal TECHNICAL QUALITY: Adequate. COMPARISON: 02/05/2021 FINDINGS: The uterus is anteverted and is in a midline position. The uterus measures 7.2 x 4.8 x 3.5 cm. Normal uterine cervix. The endometrium measures 7 mm in thickness, and is hyperechoic. There is no demonstrated endometrial mass. There is a 1.0 x 1.2 x 1.1 cm fibroid. I.U.D. - The patient does not have an I.U.D. The right ovary is visualized. The right ovary measures 2.5 x 2.8 x 1.5 cm. There is no right ovarian cyst or ovarian mass. There is no visualized right adnexal mass or complex lesion. There is normal arterial and normal venous vascularity. The left ovary is visualized. The left ovary measures 2.4 x 2.5 x 1.8 cm. There is a complex 1.6 cm cyst There is no visualized left adnexal mass or complex lesion. There is normal arterial and normal venous vascularity. There is no fluid in the cul-de-sac. The bladder is sonographically normal US/Pelvic (Non ) IMPRESSION: Endometrial thickness is 7 mm. This is within normal range if patient is pre or perimenopausal. However, if patient is postmenopausal, this is abnormal and further evaluation would be recommended to exclude endometrial carcinoma Small uterine fibroid Complex left ovarian cyst, 4-6 week follow-up ultrasound recommended to assure resolution Electronically Signed: Jerry Santos MD at 16:12 EDT , Service support ,
--- NOTE | 2021-04-16 10:48 | US_ITS ---
STUDY: ULTRASOUND OF THE FEMALE PELVIS - COMPLETE REASON FOR EXAM: Female, 55 years old. Pelvic pain and fullness LMP: Unknown. TECHNIQUE: Transabdominal and Transvaginal TECHNICAL QUALITY: Adequate. COMPARISON: 02/05/2021 FINDINGS: The uterus is anteverted and is in a midline position. The uterus measures 7.2 x 4.8 x 3.5 cm. Normal uterine cervix. The endometrium measures 7 mm in thickness, and is hyperechoic. There is no demonstrated endometrial mass. There is a 1.0 x 1.2 x 1.1 cm fibroid. I.U.D. - The patient does not have an I.U.D. The right ovary is visualized. The right ovary measures 2.5 x 2.8 x 1.5 cm. There is no right ovarian cyst or ovarian mass. There is no visualized right adnexal mass or complex lesion. There is normal arterial and normal venous vascularity. The left ovary is visualized. The left ovary measures 2.4 x 2.5 x 1.8 cm. There is a complex 1.6 cm cyst There is no visualized left adnexal mass or complex lesion. There is normal arterial and normal venous vascularity. There is no fluid in the cul-de-sac. The bladder is sonographically normal US/Transvaginal Non- IMPRESSION: Endometrial thickness is 7 mm. This is within normal range if patient is pre or perimenopausal. However, if patient is postmenopausal, this is abnormal and further evaluation would be recommended to exclude endometrial carcinoma Small uterine fibroid Complex left ovarian cyst, 4-6 week follow-up ultrasound recommended to assure resolution Electronically Signed: Jerry Santos MD at 16:12 EDT , Service support ,
== END ==
PROVIDERS: PCP Family Medicine; Referring Provider Family Medicine; Visit Provider Family Medicine
DX: N83.292 Other ovarian cyst, left side (principal); D25.9 Leiomyoma of uterus, unspecified; R10.2 Pelvic and perineal pain
CPT/HCPCS: 76830; 76856; 93976

== ENCOUNTER 2021-09-02 12:22 | Outpatient (CLI) | payer SELFPAY ==
--- NOTE | 2021-09-02 12:27 | US_ITS ---
STUDY: ULTRASOUND OF THE FEMALE PELVIS - COMPLETE REASON FOR EXAM: Female, 55 years old. Follow-up left ovarian cyst. Pelvic pain. LMP: 05/12/2021. TECHNIQUE: Transabdominal and Transvaginal TECHNICAL QUALITY: Adequate. COMPARISON: Comparison is made with prior study dated 04/16/2021. FINDINGS: The uterus is anteverted and is in a midline position. The uterus measures 6.9 cm x 4.2 cm x 3.9 cm. There is a Nabothian cyst of the cervix. The endometrium measures 8 mm in thickness, and is hyperechoic. There is no demonstrated endometrial mass. There is a 1.1 cm x 1.3 cm x 1 cm uterine fibroid. I.U.D. - The patient does not have an I.U.D. The right ovary is visualized. The right ovary measures 2.1 cm x 1.2 cm x 2.6 cm. There is no right ovarian cyst or ovarian mass. There is no visualized right adnexal mass or complex lesion. There is normal arterial and normal venous vascularity. The left ovary is visualized. The left ovary measures 2 cm x 1.2cm x 2.6 cm. There is a dominant follicle in the left ovary measuring 1.3 cm x 1.1 cm x 0.8 cm. There is no visualized left adnexal mass or complex lesion. There is normal arterial and normal venous vascularity. There is no fluid in the cul-de-sac. The pre void volume of the bladder was 388 ml. US/Transvaginal Non- IMPRESSION: Dominant follicle in the left ovary. Electronically Signed: Elpidio Berkowitz MD at 15:55 EST ,
--- NOTE | 2021-09-02 12:27 | US_ITS ---
STUDY: ULTRASOUND OF THE FEMALE PELVIS - COMPLETE REASON FOR EXAM: Female, 55 years old. Follow-up left ovarian cyst. Pelvic pain. LMP: 05/12/2021. TECHNIQUE: Transabdominal and Transvaginal TECHNICAL QUALITY: Adequate. COMPARISON: Comparison is made with prior study dated 04/16/2021. FINDINGS: The uterus is anteverted and is in a midline position. The uterus measures 6.9 cm x 4.2 cm x 3.9 cm. There is a Nabothian cyst of the cervix. The endometrium measures 8 mm in thickness, and is hyperechoic. There is no demonstrated endometrial mass. There is a 1.1 cm x 1.3 cm x 1 cm uterine fibroid. I.U.D. - The patient does not have an I.U.D. The right ovary is visualized. The right ovary measures 2.1 cm x 1.2 cm x 2.6 cm. There is no right ovarian cyst or ovarian mass. There is no visualized right adnexal mass or complex lesion. There is normal arterial and normal venous vascularity. The left ovary is visualized. The left ovary measures 2 cm x 1.2cm x 2.6 cm. There is a dominant follicle in the left ovary measuring 1.3 cm x 1.1 cm x 0.8 cm. There is no visualized left adnexal mass or complex lesion. There is normal arterial and normal venous vascularity. There is no fluid in the cul-de-sac. The pre void volume of the bladder was 388 ml. US/Pelvic (Non ) IMPRESSION: Dominant follicle in the left ovary. Electronically Signed: Elpidio Berkowitz MD at 15:55 EST ,
== END 2021-09-02 23:59 | disposition home or self-care (01) ==
PROVIDERS: PCP Family Medicine; Referring Provider Family Medicine; Visit Provider Family Medicine
DX: N83.02 Follicular cyst of left ovary (principal); R10.2 Pelvic and perineal pain
CPT/HCPCS: 76830; 76856

== ENCOUNTER → 2021-11-15 | Outpatient (CLI) | payer SELFPAY ==
--- NOTE | 2021-11-15 14:26 | US_ITS ---
STUDY: ULTRASOUND PELVIS WITH TRANSVAGINAL CLINICAL: Female, 55 years old. PELVIC PAIN -- LT O ENLARGED -CYST LMP: Unknown. TECHNIQUE: Transabdominal and transvaginal scan. COMPARISON: Pelvic ultrasound 09/02/2021.. FINDINGS: UTERUS: 7.3 cm length. There is a 1.3 x 1.2 x 1.3 cm hypoechoic fibroid anteriorly in the lower uterine segment. ENDOMETRIUM: Not thickened. Nabothian cyst in the cervix. 4 mm echogenic focus in the lower endometrium adjacent to the cyst likely calcification. OVARIES: Right ovary: 3.3 x 1.7 x 3.2 cm. Unremarkable with a 1.6 x 1.1 x 1.3 cm dominant follicle. Vascular flow demonstrated. No findings to suggest ovarian torsion. Left ovary: 3.1 x 1.1 x 2.7 cm. Unremarkable. No cyst identified. Vascular flow demonstrated. No findings to suggest ovarian torsion. FREE FLUID: None. US/Transvaginal Non- IMPRESSION: No acute findings. No significant ovarian cyst. Uterine fibroid unchanged. Electronically Signed: Charo Sutton MD at 6:26 EDT ,
--- NOTE | 2021-11-15 14:26 | US_ITS ---
STUDY: ULTRASOUND PELVIS WITH TRANSVAGINAL CLINICAL: Female, 55 years old. PELVIC PAIN -- LT O ENLARGED -CYST LMP: Unknown. TECHNIQUE: Transabdominal and transvaginal scan. COMPARISON: Pelvic ultrasound 09/02/2021.. FINDINGS: UTERUS: 7.3 cm length. There is a 1.3 x 1.2 x 1.3 cm hypoechoic fibroid anteriorly in the lower uterine segment. ENDOMETRIUM: Not thickened. Nabothian cyst in the cervix. 4 mm echogenic focus in the lower endometrium adjacent to the cyst likely calcification. OVARIES: Right ovary: 3.3 x 1.7 x 3.2 cm. Unremarkable with a 1.6 x 1.1 x 1.3 cm dominant follicle. Vascular flow demonstrated. No findings to suggest ovarian torsion. Left ovary: 3.1 x 1.1 x 2.7 cm. Unremarkable. No cyst identified. Vascular flow demonstrated. No findings to suggest ovarian torsion. FREE FLUID: None. US/Pelvic (Non ) IMPRESSION: No acute findings. No significant ovarian cyst. Uterine fibroid unchanged. Electronically Signed: Charo Sutton MD at 6:26 EDT ,
== END | disposition home or self-care (01) ==
PROVIDERS: PCP Family Medicine; Referring Provider Family Medicine; Visit Provider Family Medicine
DX: N83.8 Other noninflammatory disorders of ovary, fallopian tube and broad ligament (principal); R10.2 Pelvic and perineal pain
CPT/HCPCS: 76830; 76856; 93976

== ENCOUNTER 2022-12-31 12:10 | Emergency (ER) | payer OTHER, SELFPAY ==
[2022-12-31 12:11] VITALS: BP 171/91; PULSE 73; RESP 14; TEMP 36.2; O2SAT 97; BMI 40.3
--- NOTE | 2022-12-31 12:32 | RAD_ITS ---
HISTORY: chest pain. TECHNIQUE: XR Chest 2 Views. COMPARISON: None. FINDINGS: CARDIOMEDIASTINAL BORDERS: Cardiac silhouette within normal limits in size. Mediastinal contour unremarkable. LUNGS: Radiographically clear. PLEURA: No pleural effusion or pneumothorax seen. OSSEOUS STRUCTURES: Mild degenerative change. RAD/Chest PA and Lateral IMPRESSION: No acute cardiopulmonary process identified. Electronically Signed: Giovana Eckert MD at 13:24 EDT ,
--- NOTE | 2022-12-31 12:32 | EKG12_ITS ---
Test Reason : GENERAL Blood Pressure : / mmHG Vent. Rate : 069 BPM Atrial Rate : 069 BPM P-R Int : 194 ms QRS Dur : 094 ms QT Int : 382 ms P-R-T Axes : 028 -68 017 degrees QTc Int : 409 ms Normal sinus rhythm Left axis deviation Inferior infarct , age undetermined T wave abnormality, consider anterior ischemia Abnormal ECG Confirmed by HI PARRA, VENTURA ([id number]), field map editor NUSRAT NARANJO ([id number]) on 01/02/2023 1:00:33 PM Referred By: Confirmed By:VENTURA DO MD
--- NOTE | 2022-12-31 12:36 | EDS_ITS ---
HPI <ANGUS Carbajal - Last Filed: 12/31/22 15:33> History of Present Illness Chief Complaint: Abd Pain Narrative Narrative: 57-year-old female with PMH of HTN presents with chest pain. She has chronic LLQ sharp pain that is intermittent for the last few years. She has had work-up with negative colonoscopy. The LLQ pain occurred 1 week ago associated with pain between her shoulder blades radiating to her chest. This occurred again this morning for about 2 hours. It started when she was resting but seem to worsen as she was doing some chores outside and resolved with lying down. There was no shortness of breath, nausea, vomiting or diaphoresis. She does report increased heartburn over the last week. She is having normal 2-3 BMs a day and no urinary symptoms. No abdominal surgical history. She denies cardiac history and has never smoked. She states she had a nuclear stress test a couple years ago as part of presurgical clearance but they had to stop the test due to an IV dye allergy. PFSH <ANGUS Carbajal - Last Filed: 12/31/22 15:33> [facility] Medical History (Updated 12/31/22 @ 15:33 by ANGUS Carbajal) Obesity Osteoarthritis Vertigo Home Medications multivitamin 1 ea PO DAILY SUPPLEMENT 08/01/19 [History Last Taken Unknown] calcium citrate 200 mg (950 mg) tablet 200 mg PO DAILY 08/09/19 [History Last Taken Unknown] acetaminophen 500 mg tablet 1,000 mg PO Q8 #100 tabs 08/15/19 [Rx Last Taken Unknown] aspirin 81 mg chewable tablet 81 mg PO BIDCM #60 tabs 08/15/19 [Rx Last Taken Unknown] famotidine 20 mg tablet 20 mg PO DAILY #30 tabs 08/15/19 [Rx Last Taken Unknown] meloxicam 7.5 mg tablet 7.5 mg PO BID #60 tabs 08/15/19 [Rx Last Taken Unknown] sennosides 8.6 mg-docusate sodium 50 mg tablet 2 tab PO BID #10 tabs 08/15/19 [Rx Last Taken Unknown] lisinopril 10 mg tablet 10 mg PO DAILY #90 tabs 07/26/21 [Rx Last Taken Unknown] Allergy/AdvReac Type Severity Reaction Status Date / Time bee venom protein (honey bee) Allergy Rash Verified 12/31/22 12:12 latex Allergy Rash Verified 12/31/22 12:12 Family History Father CVA (cerebral vascular accident) Hypertension Mother Heart disease Myocardial infarction, Onset Age: 79 Grandmother Heart disease Surgical History History of tonsillectomy Social History (Updated 08/09/19 @ 14:[address] Marcello Gomes MD) Smoking Status: Never smoker alcohol intake: current alcohol intake frequency: holidays/special occasions only ROS <ANGUS Carbajal - Last Filed: 12/31/22 15:33> ROS ED ROS Narrative Constitutional: Negative for fever, chills, malaise. CVS: Positive for chest pain. Negative for palpitations, syncope. Respiratory: Negative for shortness of breath, cough, orthopnea. GI: Positive for abdominal pain. Negative for nausea, vomiting, diarrhea, constipation, melena, hematochezia. : Negative for dysuria, hematuria or frequency. Neuro: Negative for headache. EXAM <ANGUS Carbajal - Last Filed: 12/31/22 15:33> Physical Exam Narrative Exam Narrative: CONST: Patient sitting in no acute distress. EYES: Normal inspection. NECK: Normal inspection. RESP: No respiratory distress, CTAB. CVS: Regular rate and rhythm, no murmur, no gallop. ABD: Soft with slight LLQ tenderness, no guarding or rebound, nondistended, no hepatosplenomegaly. SKIN: Color normal, no rash, warm, dry, intact. EXTREMITIES: Normal appearance, no pedal edema. NEURO: Oriented x4. PSYCH: Normal affect. Const Vital Signs: 12/31/22 12:11 12/31/22 14:54 12/31/22 15:27 Temperature 97.2 F L 98 F Temperature Source Temporal Pulse Rate 73 72 70 Respiratory Rate 14 16 16 Blood Pressure 171/91 H 115/75 118/72 Blood Pressure Mean 117 88 Pulse Ox 97 97 Oxygen Delivery Method Room Air Room Air <Dr. René Paniagua DO - Last Filed: 01/01/23 07:09> Physical Exam Const Vital Signs: 12/31/22 12:11 12/31/22 14:54 12/31/22 15:27 Temperature 97.2 F L 98 F Temperature Source Temporal Pulse Rate 73 72 70 Respiratory Rate 14 16 16 Blood Pressure 171/91 H 115/75 118/72 Blood Pressure Mean 117 88 Pulse Ox 97 97 Oxygen Delivery Method Room Air Room Air [facility] <ANGUS Carbajal - Last Filed: 12/31/22 15:33> [facility] Narrative Medical decision making narrative: Patient was evaluated for pain between her shoulder blades rating to her chest. She felt like this was associated with her chronic LLQ abdominal pain. Pain lasted 1 to 2 hours this morning and had resolved upon arrival. She appears well and nontoxic. BP is 171/91 with otherwise normal vital signs. She does have chronic hypertension. Her medical exam overall is unremarkable. She had some subjective LLQ tenderness on exam but no objective findings. CBC, CMP, UA are all unremarkable. EKG is sinus rhythm with T wave inversions in V1 through V3 with no prior for comparison. Serial cardiac enzymes are 6 and 9 ruling out ACS. Her heart score is 3. I recommended patient follow-up with the cardiology office and she can trial Pepcid or PPI for her symptoms as she does report heartburn recently. If symptoms worsen return to the ER. She was comfortable with this plan and discharged in stable condition. Differential: ACS, GERD, musculoskeletal Test considered: I considered a D-dimer but her pain is resolved, she has no shortness of breath, normal vital signs External records reviewed: 08/13/2019 Dobutamine stress echo with no evidence of ischemia noted at a low workload. Patient relays testing was stopped early due to IV contrast allergy. Lab Data Attestation: I reviewed the patient's lab results. Labs: Laboratory Results - last 24 hr 12/31/22 12/31/22 12/31/22 12:44 12:44 12:55 WBC 8.2 RBC 4.56 Hgb 13.4 Hct 39.5 MCV 86.6 MCH 29.4 MCHC 33.9 RDW Std Deviation 39.6 RDW Coeff of Kimmy 12.5 Plt Count 245 MPV 10.0 Immature Gran % (Auto) 0.400 Neut % (Auto) 79.9 H Lymph % (Auto) 14.5 L [place] % (Auto) 3.6 Eos % (Auto) 1.1 Baso % (Auto) 0.5 Absolute Neuts (auto) 6.5 Absolute Lymphs (auto) 1.18 Nucleated RBC % 0 Sodium 138 Potassium 3.8 Chloride 107 Carbon Dioxide 27.0 Anion Gap 4 L BUN 10 Creatinine 0.73 Estim Creat Clear Calc 81.51 Est GFR (MDRD) Af Amer 106 Est GFR (MDRD) Non-Af 87 BUN/Creatinine Ratio 13.6 Glucose 125 H Calcium 9.0 Total Bilirubin 0.40 AST 22 ALT 22 Alkaline Phosphatase 27 L Troponin I High Sens 6 Total Protein 6.8 Albumin 3.4 Globulin 3.4 Albumin/Globulin Ratio 1.0 Urine Color Yellow Urine Clarity Clear Urine pH 7.0 Ur Specific [place] 1.010 Urine Protein Negative Urine Glucose (UA) Normal Urine Ketones Negative Urine Occult Blood 10 H Urine Nitrite Negative Urine Bilirubin Negative Urine Urobilinogen Normal Ur Leukocyte Esterase Negative Urine RBC 0-5 SEEN Urine WBC 0 SEEN Ur Squamous Epith Cells 0-5 SEEN Urine Bacteria 0 SEEN Urine Mucus 0 SEEN 12/31/22 14:39 WBC RBC Hgb Hct MCV MCH MCHC RDW Std Deviation RDW Coeff of Kimmy Plt Count MPV Immature Gran % (Auto) Neut % (Auto) Lymph % (Auto) [place] % (Auto) Eos % (Auto) Baso % (Auto) Absolute Neuts (auto) Absolute Lymphs (auto) Nucleated RBC % Sodium Potassium Chloride Carbon Dioxide Anion Gap BUN Creatinine Estim Creat Clear Calc Est GFR (MDRD) Af Amer Est GFR (MDRD) Non-Af BUN/Creatinine Ratio Glucose Calcium Total Bilirubin AST ALT Alkaline Phosphatase Troponin I High Sens 9 Total Protein Albumin Globulin Albumin/Globulin Ratio Urine Color Urine Clarity Urine pH Ur Specific [place] Urine Protein Urine Glucose (UA) Urine Ketones Urine Occult Blood Urine Nitrite Urine Bilirubin Urine Urobilinogen Ur Leukocyte Esterase Urine RBC Urine WBC Ur Squamous Epith Cells Urine Bacteria Urine Mucus Radiography Diagnostic Testing: Clinical Impression(s) from Imaging Studies Chest X-Ray 12/31/22 12:32 IMPRESSION: No acute cardiopulmonary process identified. Electronically Signed: Giovana Eckert MD at 13:24 EDT , ED attending interpretation of 2 view chest x-ray shows normal heart size, no acute infiltrate, edema, or effusion. EKG Initial EKG: Attestation: I personally reviewed and interpreted this EKG as follows: Interpretation: Sinus Rhythm Comments: Normal sinus rhythm at 69 bpm, T wave inversions V1 through V3, no STEMI Prior EKG tracings: not available for review <Dr. René Paniagua, DO - Last Filed: 01/01/23 07:09> [facility] Narrative Medical decision making narrative: Patient was evaluated for pain between her shoulder blades rating to her chest. She felt like this was associated with her chronic LLQ abdominal pain. Pain lasted 1 to 2 hours this morning and had resolved upon arrival. She appears well and nontoxic. BP is 171/91 with otherwise normal vital signs. She does have chronic hypertension. Her medical exam overall is unremarkable. She had some subjective LLQ tenderness on exam but no objective findings. CBC, CMP, UA are all unremarkable. EKG is sinus rhythm with T wave inversions in V1 through V3 with no prior for comparison. Serial cardiac enzymes are 6 and 9 ruling out ACS. Her heart score is 3. I recommended patient follow-up with the cardiology office and she can trial Pepcid or PPI for her symptoms as she does report heartburn recently. If symptoms worsen return to the ER. She was comfortable with this plan and discharged in stable condition. Differential: ACS, GERD, musculoskeletal Test considered: I considered a D-dimer but her pain is resolved, she has no shortness of breath, normal vital signs External records reviewed: 08/13/2019 Dobutamine stress echo with no evidence of ischemia noted at a low workload. Patient relays testing was stopped early due to IV contrast allergy. This patient was seen with a PA/NUT SORTER OPERATOR Individually assessed they patient including history and physical. I have reviewed everything on the chart that is available and agree with the documentation provided by the PA/NUT SORTER OPERATOR including discussion about the assessment, treatment plan, discussion, and return precautions. 57-year-old female with chest pain. HEART score of 3. Work-up ultimately negative. PERC negative. Recommended outpatient follow-up. Lab Data Labs: Laboratory Results - last 24 hr 12/31/22 12/31/22 12/31/22 12:44 12:44 12:55 WBC 8.2 RBC 4.56 Hgb 13.4 Hct 39.5 MCV 86.6 MCH 29.4 MCHC 33.9 RDW Std Deviation 39.6 RDW Coeff of Kimmy 12.5 Plt Count 245 MPV 10.0 Immature Gran % (Auto) 0.400 Neut % (Auto) 79.9 H Lymph % (Auto) 14.5 L [place] % (Auto) 3.6 Eos % (Auto) 1.1 Baso % (Auto) 0.5 Absolute Neuts (auto) 6.5 Absolute Lymphs (auto) 1.18 Nucleated RBC % 0 Sodium 138 Potassium 3.8 Chloride 107 Carbon Dioxide 27.0 Anion Gap 4 L BUN 10 Creatinine 0.73 Estim Creat Clear Calc 81.51 Est GFR (MDRD) Af Amer 106 Est GFR (MDRD) Non-Af 87 BUN/Creatinine Ratio 13.6 Glucose 125 H Calcium 9.0 Total Bilirubin 0.40 AST 22 ALT 22 Alkaline Phosphatase 27 L Troponin I High Sens 6 Total Protein 6.8 Albumin 3.4 Globulin 3.4 Albumin/Globulin Ratio 1.0 Urine Color Yellow Urine Clarity Clear Urine pH 7.0 Ur Specific [place] 1.010 Urine Protein Negative Urine Glucose (UA) Normal Urine Ketones Negative Urine Occult Blood 10 H Urine Nitrite Negative Urine Bilirubin Negative Urine Urobilinogen Normal Ur Leukocyte Esterase Negative Urine RBC 0-5 SEEN Urine WBC 0 SEEN Ur Squamous Epith Cells 0-5 SEEN Urine Bacteria 0 SEEN Urine Mucus 0 SEEN 12/31/22 14:39 WBC RBC Hgb Hct MCV MCH MCHC RDW Std Deviation RDW Coeff of Kimmy Plt Count MPV Immature Gran % (Auto) Neut % (Auto) Lymph % (Auto) [place] % (Auto) Eos % (Auto) Baso % (Auto) Absolute Neuts (auto) Absolute Lymphs (auto) Nucleated RBC % Sodium Potassium Chloride Carbon Dioxide Anion Gap BUN Creatinine Estim Creat Clear Calc Est GFR (MDRD) Af Amer Est GFR (MDRD) Non-Af BUN/Creatinine Ratio Glucose Calcium Total Bilirubin AST ALT Alkaline Phosphatase Troponin I High Sens 9 Total Protein Albumin Globulin Albumin/Globulin Ratio Urine Color Urine Clarity Urine pH Ur Specific [place] Urine Protein Urine Glucose (UA) Urine Ketones Urine Occult Blood Urine Nitrite Urine Bilirubin Urine Urobilinogen Ur Leukocyte Esterase Urine RBC Urine WBC Ur Squamous Epith Cells Urine Bacteria Urine Mucus Radiography Diagnostic Testing: Clinical Impression(s) from Imaging Studies Chest X-Ray 12/31/22 12:32 IMPRESSION: No acute cardiopulmonary process identified. Electronically Signed: Giovana Eckert MD at 13:24 EDT , Discharge Plan Triage Chief Complaint: Abd Pain ED Midlevel Provider: Sheri Chung ED Provider: René Paniagua Dx/Rx/DC Orders Clinical Impression: Chest pain, Abdominal pain, chronic, left lower quadrant Instructions: ED Chest Pain, Uncertain Cause Prescriptions: No Action calcium citrate 200 mg (950 mg) tablet 200 mg PO DAILY multivitamin 1 EACH tablet 1 ea PO DAILY sennosides-docusate sodium 1 TABLET tablet 2 tab PO BID Qty: 10 0RF Rx Instructions: Take until first bowel movement, then as needed acetaminophen 500 MG tablet 1,000 mg PO Q8 Qty: 100 0RF Rx Instructions: Do not take more than 3000 mg Tylenol in a 24-hour period meloxicam 7.5 MG tablet 7.5 mg PO BID Qty: 60 0RF Rx Instructions: Do not take any other nonsteroidal anti-inflammatories while taking meloxicam/Mobic famotidine 20 MG tablet 20 mg PO DAILY Qty: 30 0RF aspirin 81 MG tablet,chewable 81 mg PO BIDCM Qty: 60 0RF Rx Instructions: Take 81 mg aspirin twice daily for 4 weeks postoperatively for DVT prophylaxis lisinopril 10 mg tablet 10 mg PO DAILY Qty: 90 3RF Primary Care Provider: Sheri Tobias Referrals: Marcello Gomes MD [Med Staff - Active Staff] - Sheri Tobias DO [Primary Care Provider] - Activity Restrictions/Additional Instructions: I recommend you follow-up with the cardiology office for evaluation. If you develop new or worsening symptoms come back to the ER. Disposition Disposition: Home, Self Care Discharge Date/Time: 12/31/22 15:28
--- NOTE | 2022-12-31 12:49 | ED.RN ---
no old ekgs listed.
[2022-12-31 12:53] LABS: Absolute Lymphocyte Count 1.18 X10^3/uL (0.83-4.51); Absolute Neutrophil Count 6.5 X10^3/uL (2.0-7.7); Basophil# 0.04 X10^3/uL; Basophil% 0.5 % (0-1); Eosinophil# 0.09 X10^3/uL; Eosinophils% 1.1 % (0-5); Hematocrit 39.5 % (37-47); Hemoglobin 13.4 g/dL (12.0-15.0); Lymphocyte # 1.18 X10^3/ul (0.83-4.51); Lymphocyte % 14.5 % (19-41); Mean Corp Hgb Conc 33.9 g/dL (32-36); Mean Corpuscular Hgb 29.4 pg (27.0-32.0); Mean Corpuscular Volume 86.6 fL (81-99); Monocyte# 0.29 X10^3/uL; Monocyte% 3.6 % (0-10); NRBC Flagged by Analyzer 0 % (0-5); Neutrophil # 6.52 X10^3/uL (2.7-7.7); Neutrophil % 79.9 % (47-70); Platelet Count 245 K/mm3 (150-450); RBC Distribution Width CV 12.5 % (11.6-14.6); RBC Distribution Width SD 39.6 fl (35.1-43.9); Red Blood Count 4.56 M/mm3 (4.2-5.4); White Blood Count 8.2 K/mm3 (4.4-11.0)
[2022-12-31 12:58] LABS: Bacteria 0 SEEN /hpf (None Seen); Mucous, Urine 0 SEEN /hpf (<or=2+); White Blood Cells 0 SEEN /hpf (0-5)
[2022-12-31 13:01] LABS: Color, Urine Yellow (Yellow); Glucose, Dipstick Normal (Normal); Ketone-Dipstick Negative (Negative); Leukocyte Esterase-Dipstick Negative /ul (Negative); Nitrite-Dipstick Negative (Negative); Occult Blood-Urine 10 /ul (Negative); Protein-Dipstick Negative (Negative); Urine Bilirubin Dipstick Negative (Negative); Urine Clarity Clear (Clear); Urine Urobilinogen Normal (Normal)
[2022-12-31 13:12] LABS: Red Blood Cells-Urine 0-5 SEEN /hpf (0-5); Squamous Epithelial Cells - UA 0-5 SEEN /hpf (5-10)
[2022-12-31 13:12] LABS: AST(SGOT) 22 U/L (15-37); Alanine Aminotransfer ALT/SGPT 22 U/L (13-56); Albumin, Serum 3.4 g/dL (3.2-5.0); Alkaline Phosphatase 27 U/L (45-117); Anion Gap 4 (5-15); BUN 10 mg/dL (7-18); BUN/Creat Ratio 13.6 RATIO (10-20); Chloride 107 mmol/L (98-107); Creatinine, Serum 0.73 mg/dL (0.55-1.02); EST Glomerular Filtration Rate 87 mL/min (>60); Est Glom Filt Rate - Afr Amer 106 mL/min (>60); Estimated Creatinine Clearance 81.51 ml/min; Globulin 3.4 g/dL (2.2-4.2); Glucose 125 mg/dL (74-106); Potassium 3.8 mmol/L (3.5-5.1); Protein, Total 6.8 g/dL (6.4-8.2); Sodium Level 138 mmol/L (136-145); Troponin-I HS 6 pg/mL (3.0-54.0)
[2022-12-31 14:54] VITALS: BP 115/75; PULSE 72; RESP 16; O2SAT 97
[2022-12-31 15:08] LABS: Troponin-I HS 9 pg/mL (3.0-54.0)
[2022-12-31 15:27] VITALS: BP 118/72; PULSE 70; RESP 16; TEMP 36.6
== END 2022-12-31 15:28 | disposition home or self-care (01) ==
PROVIDERS: Physician Assistant; Emergency Provider Student in an Organized Health Care Education/Training Program; PCP Family Medicine; Visit Provider Student in an Organized Health Care Education/Training Program
DX: R07.9 Chest pain, unspecified (principal); R10.32 Left lower quadrant pain; G89.29 Other chronic pain
CPT/HCPCS: 71046; 80053; 81001; 84484; 85025; 93005; 99283; A4216

== ENCOUNTER → 2023-03-21 | Outpatient (CLI) | payer SELFPAY ==
--- NOTE | 2023-03-21 06:50 | ECHOD_ITS ---
Reason For Study: ABNORMAL EKG Procedure This was a 2D Doppler, Color Flow transthoracic echocardiogram. Exam performed in department. Left Ventricle Normal LV size. Left ventricular systolic function is normal. The estimated ejection fraction is 55 %. Stage 1 diastolic dysfunction. No regional wall motion abnormalities noted. Right Ventricle Normal RV size. Normal systolic function. Atria Normal left atrium. Normal right atrium. Mitral Valve The mitral valve is structurally normal. No prolapse or stenosis seen. Tricuspid Valve Normal tricuspid valve. Aortic Valve Normal aortic valve. Trisinus/trileaflet aortic valve. Pulmonic Valve Normal pulmonic valve. Great Vessels Normal aortic root. The pulmonary artery is normal size. Normal inferior vena cava. Pericardium/Pleural No pericardial effusion. MMode/2D Measurements & Calculations LVIDd: 5.6 cm IVSd: 1.1 cm Ao root diam: 3.6 cm LVIDs: 3.1 cm LVPWd: 1.1 cm RVDd: 3.0 cm FS: 43.7 % LAV(MOD-bp): 51.3 ml LVAd ap4: 36.8 cm2 LVAd ap2: 27.7 cm2 LAV(MOD-bp) Indexed: 23.3 ml/m2 LVLd ap4: 9.0 cm LVLd ap2: 7.1 cm LAV(MOD-sp2): 50.3 ml EDV(MOD-sp4): 123.4 ml EDV(MOD-sp2): 90.9 ml LAV(MOD-sp4): 42.7 ml EDV(sp4-el): 127.3 ml EDV(sp2-el): 91.7 ml LVAs ap4: 19.4 cm2 LVAs ap2: 14.3 cm2 LVLs ap4: 7.4 cm LVLs ap2: 6.0 cm ESV(MOD-sp4): 43.0 ml ESV(MOD-sp2): 29.2 ml ESV(sp4-el): 43.1 ml ESV(sp2-el): 29.2 ml EF(MOD-sp4): 65.2 % EF(MOD-sp2): 67.8 % EF(sp4-el): 66.2 % SV(MOD-sp4): 80.5 ml SV(MOD-sp2): 61.7 ml SV(sp4-el): 84.2 ml LA dimension(2D): 3.4 cm LA A4 area: 17.4 cm2 RA A4 area: 17.5 cm2 TAPSE: 2.2 cm Time Measurements MV dec time: 0.26 sec Doppler Measurements & Calculations MV E max sam: 47.8 cm/sec Lat Peak E' Sam: 8.9 cm/sec Med Peak E' Sam: 10.3 cm/sec MV A max sam: 53.4 cm/sec E/E' lat: 5.4 E/E' med: 4.6 MV E/A: 0.89 MV V2 max: 64.2 cm/sec MV dec slope: 190.9 cm/sec2 Ao V2 max: 127.1 cm/sec MV max P.7 mmHg Ao max P.5 mmHg MV V2 mean: 35.5 cm/sec Ao V2 mean: 83.8 cm/sec MV mean P.60 mmHg Ao mean P.3 mmHg MV V2 VTI: 18.5 cm Ao V2 VTI: 31.3 cm AV (velocity ratio): 0.75 LV V1 max: 99.3 cm/sec PA V2 max: 71.1 cm/sec LV V1 max P.0 mmHg PA V2 mean: 51.8 cm/sec LV V1 mean P.1 mmHg LV V1 mean: 67.2 cm/sec LV V1 VTI: 23.5 cm ECHO/Echo Complete Interpretation Summary Normal LV size. Left ventricular systolic function is normal. The estimated ejection fraction is 55 %. Stage 1 diastolic dysfunction. Contrast injection was performed. Ordering Physician: Marcello Gomes Referring Physician: Sheri Tobias Performed By: Ana Lagos RDCS, RVT
--- NOTE | 2023-03-21 15:56 | STRESSREP ---
Stress Test Report Exercise myocardial perfusion stress test. 57-year-old lady with a history of abnormal EKG Stress protocol: Resting EKG demonstrates sinus bradycardia with a rate of 55 bpm, and T wave inversions noted anteriorly. Resting blood pressure is 130/82 mmHg. The patient exercised according to the regular [facility] protocol for a total duration of 6 minutes attaining a maximum heart rate of 160 bpm which was 96% of maximum predicted heart rate; the maximum workload was 7 metabolic equivalents. At rest there were no ST or T wave changes noted to suggest ischemia and at peak exercise upsloping ST changes only were noted which did not meet the criteria for ischemia. No clinical angina was noted the test was terminated due to the target heart rate being achieved/fatigue. The peak blood pressure was 182/88 mmHg. Rate-pressure product was 25,400. Myocardial perfusion protocol. 14.8 mCi of technetium 99m sestamibi was injected at rest. The patient exercised according to regular [facility] protocol for total duration of 6 minutes and at peak exercise 45 mCi of technetium 99m sestamibi was injected stress images were obtained stress and rest images were reconstructed in comparing the short axis vertical long and horizontal long axis. Gated images were also obtained. Perfusion SPECT analysis: Review of the stress images demonstrate normal uptake of tracer noted in all areas of the myocardium. The resting images similarly demonstrate normal uptake of tracer noted in all areas of the myocardium. No areas of reversibility are noted to suggest ischemia no previous infarct was noted. Gated SPECT analysis: The gated ejection fraction is 70%. Conclusion: Normal exercise myocardial perfusion stress test at a moderate workload Preserved ejection fraction.
== END | disposition home or self-care (01) ==
PROVIDERS: PCP Family Medicine; Referring Provider Internal Medicine Cardiovascular Disease; Visit Provider Internal Medicine Cardiovascular Disease
DX: I10 Essential (primary) hypertension (principal); R94.31 Abnormal electrocardiogram [ECG] [EKG]
CPT/HCPCS: 78452; 93017; 93306; A9500; Q9957; A4216

== ENCOUNTER 2024-09-09 07:11 | Observation (INO) | payer SELFPAY ==
--- NOTE | 2024-08-22 11:36 | EKG12_ITS ---
Test Reason : PRE OP Blood Pressure : */* mmHG Vent. Rate : 69 BPM Atrial Rate : 69 BPM P-R Int : 168 ms QRS Dur : 90 ms QT Int : 386 ms P-R-T Axes : 43 -84 -66 degrees QTcB Int : 413 ms Normal sinus rhythm Left axis deviation Pulmonary disease pattern ST & T wave abnormality, consider inferior ischemia ST & T wave abnormality, consider anterolateral ischemia Abnormal ECG Confirmed by SILVINA PARRA, WESTON ([id number]), web content editor NUSRAT NARANJO ([id number]) on 08/23/2024 1:07:38 PM Referred By: Terrance Arnold Confirmed By: WESTON COOL MD
[2024-08-22 11:38] LABS: Absolute Lymphocyte Count 2.36 X10^3/uL (0.83-4.51); Basophil# 0.05 X10^3/uL; Basophil% 0.8 % (0-1); Eosinophil# 0.18 X10^3/uL; Eosinophils% 2.9 % (0-5); Hematocrit 41.1 % (37-47); Hemoglobin 13.8 g/dL (12.0-15.0); Lymphocyte # 2.36 X10^3/ul (0.83-4.51); Lymphocyte % 38.6 % (19-41); Mean Corp Hgb Conc 33.6 g/dL (32-36); Mean Corpuscular Hgb 28.6 pg (27.0-32.0); Mean Corpuscular Volume 85.3 fL (81-99); Mean Platelet Vol. 9.9 fl (6.2-12.0); Monocyte# 0.48 X10^3/uL; Monocyte% 7.9 % (0-10); NRBC Flagged by Analyzer 0 % (0-5); Neutrophil # 3.03 X10^3/uL (2.7-7.7); Neutrophil % 49.6 % (47-70); Platelet Count 242 K/mm3 (150-450); RBC Distribution Width CV 13.1 % (11.6-14.6); RBC Distribution Width SD 40.8 fl (35.1-43.9); Red Blood Count 4.82 M/mm3 (4.2-5.4); White Blood Count 6.1 K/mm3 (4.4-11.0)
[2024-08-22 12:09] LABS: Albumin, Serum 3.9 g/dL (3.2-5.0); Anion Gap 4 (5-15); BUN 15 mg/dL (7-18); BUN/Creat Ratio 20.6 RATIO (10-20); Calcium,Total 9.5 mg/dL (8.5-10.1); Chloride 105 mmol/L (98-107); Creatinine, Serum 0.73 mg/dL (0.55-1.02); EST Glomerular Filtration Rate 88 mL/min (>60); Est Glom Filt Rate - Afr Amer 106 mL/min (>60); Glucose 92 mg/dL (74-106); Potassium 4.4 mmol/L (3.5-5.1); Sodium Level 137 mmol/L (136-145)
[2024-08-22 12:12] LABS: Magnesium 2.2 mg/dL (1.6-2.6)
--- NOTE | 2024-08-22 21:06 | PAT.ANESEVAL ---
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 When Was Last Pacemaker Check QUESTION #4 FULL TEXT: You/Your Family Experience fever (hyperthermia) with Anesthesia Last Oral Intake Last Oral intake: Last Oral Intake NPO since Meds taken in AM with sips of water? Meds patient instructed to take am of surgery PONV PONV - television script writer: PONV - television script writer Female Yes 08/14/24 10:11 HX of Motion Sickness No 08/14/24 10:11 HX of N/V After Surgery No 08/14/24 10:11 Non-Smoker Yes 08/14/24 10:11 Duration of Surgery greater Yes 08/14/24 10:11 than 60 minutes Number of Risk Factors 3 08/14/24 10:11 PONV Score Moderate Risk 08/14/24 10:11 Height & Weight Height & Weight: Anesthesia: Height & Weight Height 5 ft 6 in 02/07/24 09:28 Respiratory Assessment Respiratory Assessment - television script writer: Respiratory Tract Infection Hx - television script writer Hx Respiratory Tract Infection No 08/14/24 10:11 STOP Sleep Apnea STOP Sleep Apnea - television script writer: STOP Sleep Apnea - television script writer Hx Hypertension Yes: CONTROLLED WITH MED 08/14/24 10:11 Hx Sleep Apnea No 08/14/24 10:11 CPAP BIPAP Do you snore loudly (louder No 08/14/24 10:11 than talking or can be heard Do you often feel tired/ No 08/14/24 10:11 fatigued/ sleepy during daytime? Has anyone observed you stop No 08/14/24 10:11 breathing during sleep? STOP Results Negative 08/14/24 10:11 QUESTION #5 FULL TEXT : Do you snore loudly (louder than talking or can be heard through closed doors)? Tobacco Use History Tobacco Use History - television script writer: Tobacco Use History - television script writer Tobacco Use Smoking Status Never smoker 08/14/24 10:11 Hx Tobacco Use No 08/14/24 10:11 Years Smoking Packs Smoked per Day Smoking Cessation Date was within the last 15 years Hx Smoking Cessation Date Hx Smoking Cessation Counseling Hematologic Medial History Hematologic Hx - television script writer: Hematologic Medical Hx - rn complex care Hx of Blood Transfusion No 08/14/24 10:11 Hx of Transfusion in last 3 No 08/14/24 10:11 Months Date of Last Transfusion (if within last 3 months) Ever experience any problems No 08/14/24 10:11 with transfusion(s)? Specify any problems Hx of Preganancy in last 3 N/A 08/14/24 10:11 Months Nurse Filling Out Transfusion NBUCHER 08/14/24 10:11 & Questions: Date: 08/14/24 08/14/24 10:11 Time: 10:12 08/14/24 10:11 Patient unable to answer at this time (ie. confused, unrespo /Reproduction History /Reproductive History - television script writer: /Reproductive Hx- television script writer Hx Now Gestational Age (in weeks): EDC: Hx Hx Para Hx Section SAB PFSH Medical History (Updated 08/14/24 @ 10:16 by Kira Spivey) Post-menopausal Loss of hearing Wears glasses Arthritis History of echocardiogram History of stress test Hypertension Cardiology follow-up encounter GERD (gastroesophageal reflux disease) Essential hypertension Vertigo Elevated blood pressure reading in office without diagnosis of hypertension Obesity Osteoarthritis Abnormal electrocardiogram Home Medications ?Medication ?Instructions ?Recorded ?Last Taken ?Type multivitamin 1 ea PO DAILY SUPPLEMENT 08/01/19 Unknown History lisinopril 10 mg tablet 10 mg PO DAILY #90 tabs 07/26/21 Unknown Rx acetaminophen 500 mg tablet 1,000 mg PO ONCE PRN pain 02/07/24 Unknown History amoxicillin 500 mg capsule 2,000 mg PO ONCE PRN PRIOR TO 02/07/24 Unknown History DENTAL PROCEDURE ascorbic acid (vitamin C) 1,000 mg 2 g PO DAILY 02/07/24 Unknown History tablet cholecalciferol (vitamin D3) 25 25 mcg PO DAILY 02/07/24 Unknown History mcg (1,000 unit) tablet Bacillus coagulans 250 million 2 tab PO DAILY 08/14/24 Unknown History cell chewable tablet (Digestive Advantage Immune) meloxicam 7.5 mg tablet 7.5 mg PO BID PRN pain 08/14/24 Unknown History Allergy/AdvReac Type Severity Reaction Status Date / Time bee venom protein (honey bee) Allergy Rash Verified 08/14/24 10:07 latex Allergy Rash Verified 08/14/24 10:07 Family History Father CVA (cerebral vascular accident) Hypertension Mother Heart disease Myocardial infarction, Onset Age: 79 Grandmother Heart disease Surgical History History of colonoscopy History of total left hip arthroplasty (08/14/19) History of tonsillectomy Social History Smoking Status: Never smoker alcohol intake: current alcohol intake frequency: holidays/special occasions only substance use type: does not use caffeine: Yes Audit: Pertinent Findings Pertinent Findings EKG Perinent findings: February 08, 2023. Sinus rhythm?left axis?anterior fascicular block. Inferior infarct. Negative T waves. Possible anterior ischemia. See stress and echo below. Stress test pertinent findings: March 21, 2023. Ejection fraction 70%. No areas of reversibility are noted to suggest ischemia. No previous infarct. Echo (EF%) pertinent findings: March 21, 2023. Ejection fraction 55%. No aortic stenosis noted. Consult pertinent findings: February 07, 2024. Yfn ESTES. 1.Hypertension?blood pressures under good control. Continue current dose of lisinopril. 2. Cardiac evaluation-patient is doing well. Recommendation Anesthesia Recommendation Anesthesia recommendation: OPTIMIZED for anesthesia
--- NOTE | 2024-09-05 22:37 | PCM.HP.BLA ---
History and Physical History and Physical Patient Name: Whit Mackenzie : 1965From:? DELANO SMALL PA-C DATE OF PRE-OPERATIVE EXAM: 09/04/2024 DATE OF SURGERY:? 09/09/2024 SCHEDULED PROCEDURE:? Direct anterior right total hip arthroplasty HISTORY OF PRESENT ILLNESS: Preoperative history and physical exam was performed on September 04, 2024.? This is a 58-year-old female who is having ongoing pain since the summer 2023.? There was no trauma or injury.? She states pain began after moving a family member.? Her pain has been intermittent, aching, and stabbing.? Pain is increased with going up and down stairs, walking, and standing.? She has increased pain in her right groin.? Patient has difficulty with activities of daily living including getting dressed putting on her socks and shoes as well as leisure activities such as walks and site seeing.? Patient has stiffness in the right hip.? She has attempted oral medications including Tylenol and meloxicam with some relief.? She has tried rest and elevation without relief.? She has attempted home exercises and senior care provider without relief.? Patient has undergone weight loss.? She denies past history of surgery on the right hip.? Patient has undergone a previous left direct anterior total hip arthroplasty by Dr. Terrance Arnold on August 14, 2019.? She is doing well from that procedure.? She has medical history pertinent for gastroesophageal reflux disease, hypertension, vertigo.? Patient denies any recent chest pain, shortness of breath, fevers chills or recent infections.? No past history of DVT or pulmonary embolism.? Patient has obtain surgical clearance for the primary care provider Dr. Tobias and [facility] cardiology group Bertram Valdez.? With Dr. Terrance Arnold, the patient does wish to proceed with a direct anterior right total hip arthroplasty. ? REVIEW OF SYSTEMS: ROS: Const: Denies change in appetite, fever and weight change. CV: Denies chest pain, heart murmur and irregular heartbeat. Resp: Reports shortness of breath, but denies cough, pneumonia, tuberculosis and wheezing. GI: Denies constipation, diarrhea, heartburn, nausea, rectal itching, bloody stools and vomiting. : Denies incontinence. Musculo: Reports leg swelling, pain, trouble walking and weakness. Skin: Denies Raynaud's, history of shingles and tattoo. Neuro: Reports difficulty with balance, dizziness, numbness/tingling and tremor but denies ambulatory dysfunction. Psych: Reports stress, but denies anxiety and insomnia. Sudeep/Lymph: Denies anemia, bleeding/bruising tendency and past transfusion. Reviewed and updated. PAST MEDICAL HISTORY: Advance Care Plan: No Advance Directives Effective Date: 06/27/2019 PMH: Medical Problems: Acid Reflux - mild High Blood Pressure, vertigo, Arthritis, sinus bradycardia, abnormal T wave on electrocardiography Accidents: None Surgical Hx: Tonsillectomy Hip Replacement LT - (08/14/2019) SAW @ [facility] Anesthesia Complications: None Assistive Devices: Glasses Reviewed and updated. 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 Personal Habits:? Cigarette Use: Never Smoked Cigarettes.Smokeless Tobacco: Never Used Smokeless Tobacco.E-Cigarette Use: Never used.Alcohol: Occasionally.Drug Use: Denies Use.Enjoy Exercising: Exercises 1-3 X/Week. Reviewed, no changes. VITALS: Ht: 64.5 Wt: 252lb Wt k.307 BMI: 42.6 BP: 128/80 Pulse: 68 Resp: 16 T: 97.4 T: 36.3C Pain Level: 8 O2SatR: 98 ALLERGIES: Bees Latex MEDICATIONS: Mupirocin 2 % use qtip and apply inside each nostril twice a day until the day of surgery, Meloxicam 7.5 mg 1 by mouth twice a day, Lisinopril 10 mg 1 by mouth every day, Vitamin D3 50 mcg (2000 Ut) 1 by mouth every day, Multivitamin Adult? 2po qday, Probiotic? 1po qday, Vitamin C? daily PRE-OP EXAM: General appearance:NORMAL? Other: Eyes: Conjunctivae and lids: NORMAL? Pupils: ERR Ears, Nose, Mouth, and Throat: NORMAL? Other: Inspection of lips, teeth and gums: NORMAL?? Other: Neck: Examination of neck: no masses noted. Respiratory: Assessment of respiratory effort: NORMAL?? Other: ? Auscultation of lungs: clear to auscultation no wheezes, rhonchi or rales. Cardiovascular:? Auscultation of heart: regular rate and rhythm, no murmurs, gallops or rubs. PHYSICAL EXAMINATION: On exam patient does walk with an antalgic gait.? Range of motion causes increased pain in her right groin.? Hip flexion 60, internal rotation 10.? Sensation intact to light touch. IMAGING STUDIES: Review his x-rays of the right hip revealed dysplasia with secondary arthritis with [id number] right hip.? Presence of left total hip arthroplasty with no evidence of loosening or lucencies. IMPRESSION: 1.? 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 Hypertension 3.? Gastroesophageal reflux disease 4.? Vertigo 5.? Morbid obesity with BMI 42.6 PLAN: Dr. Terrance Arnold did discuss and review with the patient all treatment options including surgical versus nonsurgical options.? I will continue plan established by Dr. Terrance Arnold.? Patient does wish to proceed with the above-stated procedure.? Potential risks, benefits, and complications of the procedure were discussed in detail including but not limited to , infection, nerve and blood vessel damage, persistent pain, numbness, tingling, paresthesias, blood clot, pulmonary embolism, and requirement for possible further surgery.? The patient expressed full understanding and has no further questions for the doctor.? Patient does agree to proceed with the above-stated procedure and has signed the surgery consent form. POST-OP MEDICATION PLAN: Pain Medications:? Postoperative pain regimen will be initiated by Dr. Terrnace Arnold in the hospital.? We will move forward with Tylenol, meloxicam, and tramadol postoperatively.? Patient does have a walker that she will bring to the hospital.? Due to the morbid obesity she will be placed on doxycycline for 2 weeks postoperatively.? I did discuss with her potential side effects including sensitivity to sunlight and should take appropriate precautions.? I recommended probiotics along the antibiotic. DVT Prophylaxis Plan:? Aspirin 81 mg twice daily for 4 weeks postoperatively.? Denies past history of DVT or pulmonary embolism This dictation was created using voice recognition software. Phonetic and/or grammatical errors may exist. ___? I have re-examined the patient.? There are no clinical changes since date of exam. ___? See progress notes for changes. ___? Dictated on admission Date: ? Time: Signature:
[2024-09-09] VITALS (15 sets, daily range): BP systolic 102–138; BP diastolic 64–88; PULSE 79–108; RESP 14–18; TEMP 36.4–37.2; O2SAT 92–96; BMI 42.6; BMI 43.3
--- NOTE | 2024-09-09 07:03 | PCM.PRE.AN2 ---
ASA Classification* ASA Classification ASA Classification: 2 Assessment & Plan Anesthesia* Anesthesia Assessment Anesthesia Assessment: Discussed sedation and/or anesthesia options, risks, benefits, and alternatives with patient/parents/legal guardian/POA. Questions invited. The patient/parents/legal guardian/POA seems to understand and agrees to proceed with anesthesia plan. Reviewed the physical assessment, medical history, allergy history and patient home medications list prior to surgery/procedure/anesthetic and documented any changes. Performed airway and anesthesia risk assessments. Anesthesia Type Anesthesia Type: Spinal Anesthesia Focused Assessment* Airway Assessment Mouth opens: >3 cm Mallampati Score: II Focused Labs Anesthesia Preop lab: CBC WBC 6.1 K/mm3 (4.4-11.0) 08/22/24:08/22/24 RBC 4.82 M/mm3 (4.2-5.4) 08/22/24 11:08/22/24 Hgb 13.8 g/dL (12.0-15.0) 08/22/24:08/22/24 Hct 41.1 % (37-47) 08/22/24 11:08/22/24 Plt Count 242 K/mm3 (150-450) 08/22/24 11:08/22/24 CHEMISTRY Potassium 4.4 mmol/L (3.5-5.1) 08/22/24:08/22/24 Sodium 137 mmol/L (136-145) 08/22/24:08/22/24 Magnesium 2.2 mg/dL (1.6-2.6) 08/22/24:08/22/24 BUN 15 mg/dL (7-18) 08/22/24 11:08/22/24 Creatinine 0.73 mg/dL (0.55-1.02) 08/22/24:08/22/24 Glucose 92 mg/dL (74-106) 08/22/24:08/22/24 POC Glucose 87 mg/dL (70-110) 08/14/19 07:07 08/14/19 TSH 2.15 uIU/mL (0.358-3.74) 05/11/17 09:30 05/11/17 COAG Urine Test Negative Negative 08/14/19 07:10 08/14/19 Pre-Assessment Diagnosis/Proposed Procedure Planned Operative Procedure(s): (R) ERAS, ANTERIOR RIGHT TOTAL HIP ARTHROPLASTY Anesthesia History 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 When Was Last Pacemaker Check QUESTION #4 FULL TEXT: You/Your Family Experience fever (hyperthermia) with Anesthesia Last Oral Intake Last Oral intake: Last Oral Intake NPO since Meds taken in AM with sips of water? Meds patient instructed to take am of surgery PONV PONV - pretzel twisting machine operator: PONV - pretzel twisting machine operator Female Yes 08/14/24 10:11 HX of Motion Sickness No 08/14/24 10:11 HX of N/V After Surgery No 08/14/24 10:11 Non-Smoker Yes 08/14/24 10:11 Duration of Surgery greater Yes 08/14/24 10:11 than 60 minutes Number of Risk Factors 3 08/14/24 10:11 PONV Score Moderate Risk 08/14/24 10:11 Height & Weight Height & Weight: Anesthesia: Height & Weight Height 5 ft 6 in 02/07/24 09:28 Respiratory Assessment Respiratory Assessment - pretzel twisting machine operator: Respiratory Tract Infection Hx - pretzel twisting machine operator Hx Respiratory Tract Infection No 08/14/24 10:11 STOP Sleep Apnea STOP Sleep Apnea - pretzel twisting machine operator: STOP Sleep Apnea - pretzel twisting machine operator Hx Hypertension Yes: CONTROLLED WITH MED 08/14/24 10:11 Hx Sleep Apnea No 08/14/24 10:11 CPAP BIPAP Do you snore loudly (louder No 08/14/24 10:11 than talking or can be heard Do you often feel tired/ No 08/14/24 10:11 fatigued/ sleepy during daytime? Has anyone observed you stop No 08/14/24 10:11 breathing during sleep? STOP Results Negative 08/14/24 10:11 QUESTION #5 FULL TEXT : Do you snore loudly (louder than talking or can be heard through closed doors)? 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 Specify any problems Hx of Preganancy in last 3 N/A 08/14/24 10:11 Months Nurse Filling Out Transfusion NBUCHER 08/14/24 10:11 & Questions: Date: 08/14/24 08/14/24 10:11 Time: 10:12 08/14/24 10:11 Patient unable to answer at this time (ie. confused, unrespo /Reproduction History /Reproductive History - pretzel twisting machine operator: /Reproductive Hx- pretzel twisting machine operator Hx Now Gestational Age (in weeks): EDC: Hx Hx Para Hx Section SAB Active Medications Active Medications: Current Medications Generic Name Dose Route Start Last Admin Trade Name Freq PRN Reason Stop Dose Admin Acetaminophen 1,000 mg 09/09/24 08:45 Acetaminophen 500 Mg Tablet PO 09/09/24 08:46 X1 ONE Sodium Chloride 77.4 ml/ 0 ml 09/09/24 08:45 Ropivacaine 200 mg/ OPERA.SITE 09/09/24 08:46 Epinephrine HCl 0.6 mg/ X1 ONE Ketorolac Tromethamine 30 mg/ Morphine Sulfate 5 mg Dexamethasone Sodium Phosphate 10 mg 09/09/24 08:45 Dexamethasone 10 Mg/Ml Vial IV 09/09/24 08:46 X1 ONE Gabapentin 600 mg 09/09/24 08:45 Gabapentin 600 Mg Tablet PO 09/09/24 08:46 X1 ONE Lactated Ringer's 1,000 mls @ 999 mls/hr 09/09/24 08:45 IV 09/09/24 09:45 .Q1H1M REMA Cefazolin Sodium 2 gm/ N/A 20 mls @ 400 mls/hr 09/09/24 08:45 IV 09/09/24 08:47 PREOP ONE Tranexamic Acid 1,000 mg/ 110 mls @ 660 mls/hr 09/09/24 08:45 Sodium Chloride IV 09/09/24 08:54 X1 ONE Tranexamic Acid 1,000 mg/ 110 mls @ 660 mls/hr 09/09/24 08:45 Sodium Chloride IV 09/09/24 08:54 X1 ONE Magnesium Sulfate 1 gm/ 102 mls @ 408 mls/hr 09/09/24 08:45 Dextrose IV 09/09/24 08:59 X1 ONE Insulin Human Lispro 1 - 6 unit 09/09/24 08:45 Insulin Lispro 100 Unit/Ml Insuln.Pen SC 09/09/24 23:59 Q4H PRN PRN BG>/= 180, SEE PROTOCOL Protocol PFSH Medical History Post-menopausal Loss of hearing Wears glasses Arthritis History of echocardiogram History of stress test Hypertension Cardiology follow-up encounter GERD (gastroesophageal reflux disease) Essential hypertension Vertigo Elevated blood pressure reading in office without diagnosis of hypertension Obesity Osteoarthritis Abnormal electrocardiogram Home Medications ?Medication ?Instructions ?Recorded ?Last Taken ?Type multivitamin 1 ea PO DAILY SUPPLEMENT 08/01/19 Unknown History lisinopril 10 mg tablet 10 mg PO DAILY #90 tabs 07/26/21 Unknown Rx acetaminophen 500 mg tablet 1,000 mg PO ONCE PRN pain 02/07/24 Unknown History amoxicillin 500 mg capsule 2,000 mg PO ONCE PRN PRIOR TO 02/07/24 Unknown History DENTAL PROCEDURE ascorbic acid (vitamin C) 1,000 mg 2 g PO DAILY 02/07/24 Unknown History tablet cholecalciferol (vitamin D3) 25 25 mcg PO DAILY 02/07/24 Unknown History mcg (1,000 unit) tablet Bacillus coagulans 250 million 2 tab PO DAILY 08/14/24 Unknown History cell chewable tablet (Digestive Advantage Immune) meloxicam 7.5 mg tablet 7.5 mg PO BID PRN pain 08/14/24 Unknown History Allergy/AdvReac Type Severity Reaction Status Date / Time bee venom protein (honey bee) Allergy Rash Verified 08/14/24 10:07 latex Allergy Rash Verified 08/14/24 10:07 Family History Father CVA (cerebral vascular accident) Hypertension Mother Heart disease Myocardial infarction, Onset Age: 79 Grandmother Heart disease Surgical History History of colonoscopy History of total left hip arthroplasty (08/14/19) History of tonsillectomy Social History Smoking Status: Never smoker alcohol intake: current alcohol intake frequency: holidays/special occasions only substance use type: does not use caffeine: Yes Review of Systems (Anesthesia) ROS Narrative System reviewed and no additional complaints, except as documented.
--- NOTE | 2024-09-09 07:12 | RAD_ITS ---
EXAM: XR Right Hip With Pelvis When Performed, 1 View CLINICAL INDICATION: TECHNIQUE: Frontal view of the right hip with pelvis when performed. COMPARISON: No relevant prior studies available. FINDINGS: BONES/JOINTS: Total hip replacement. Intact hardware. No acute fracture. No dislocation. SOFT TISSUES: Soft tissue emphysema and swelling. RAD/Hip Min 2 Views (Portable) IMPRESSION: Status post total hip replacement in anatomic position. Reading Location: [facility]
[2024-09-09] MEDS: Acetaminophen 500 MG Tablet 1000 MG PO ×3 (07:30→21:39)
[2024-09-09] MEDS: Gabapentin 600 MG Tablet PO (07:30)
[2024-09-09] MEDS: Lactated Ringers 1,000 ML 999 ML IV (07:31)
[2024-09-09] MEDS: Magnesium 1 GM over 15 mins IV (07:32)
--- NOTE | 2024-09-09 07:45 | RAD_ITS ---
Fluoroscopic guided images were used intraoperatively. Please refer to the operative note for further details. Total radiation dose 1.31 mGy. Total fluoroscopy time 7.3 seconds. Reading Location: [facility]
[2024-09-09 08:05] LABS: Bedside Glucose 91 mg/dL (74-106)
--- NOTE | 2024-09-09 08:45 | HIP_PTH ---
PATIENT: WHIT CRAVEN LOC: [facility] U#:[id number] AGE/SX: 58/F ROOM: VT316 RE09/09/[address]: Dr. Terrance Arnold MD : 1965 BED: 1 DIS: 09/10/2024 SPEC #: [id number] RECD: 09/09/24 14:13 STATUS: KEVIN ROSS #: [id number] ZARIA: 09/09/24 08:[address]: Terrance Arnold DEPT: SURGICAL PATHOLOGY RECD BY: Yanna Sweeney ENTERED: 09/10/24 10:47 SP TYPE: TOTAL HIP OTHR DR: DO Dr. Tesha Hou MD Tissues: Hip, NOS Procedures: Decalcification bone/plaque Surgery Specimen Level IV HEADER OPERATION: ERAS, anterior right total hip arthroplasty PRE-OP DIAGNOSIS: Severe right hip secondary arthritis with dysplasia, hypertension, gastroesophageal reflux disease, vertigo, morbid obesity with BMI 42.6 TISSUE SUBMITTED: Right hip bone and tissue MICROSCOPIC DIAGNOSIS Right femoral head, total hip arthroplasty: * Articular bone with reactive and degenerative changes and trilineage hematopoiesis MICROSCOPIC DESCRIPTION Slides are reviewed. GROSS DESCRIPTION Received in formalin labeled with the patient's name Whit Craven and designated right hip bone and tissue is a femoral head, one cross-section of bone, and multiple fragments of bone reamings. The femoral head measures 4.7 cm in diameter by 3.5 cm in length. The marginal surface is red-brown trabecular and shows a flat cut surface. The articular surface is a yellow-olmos smooth along the periphery and shows a granular a yellow-red texture involving approximately 75% of the femoral head articular surface. Within this granular area there are 2 pink-olmos smooth areas of eburnation involving approximately 15% of the articular surface sectioning through the femoral head shows red-brown trabecular bone at the base of the femoral head and otherwise yellow-olmos trabecular and unremarkable. The articular cartilage ranges from less than 0.1 to 0.2 cm thick.The cross-section of bone measures 4.5 x 3.2 x 1.1 cm. The opposing surfaces of the bone are red-brown, hemorrhagic and trabecular. There is minimal soft tissue and the outer surface. Sectioning is unremarkable.The fragments of bone reamings aggregate to 7.6 x 6.6 x 3.2 cm and are dark red-brown, diffusely hemorrhagic, and show minimal amount of olmos fibrous bony tissue. Chief Estimator sections are submitted after decalcification. Cassette summary:[id number] section of cross-section of [id number] head showing areas of eburnation and adjacent articular cartilage4-commissary representative fragments of bone reamingsJK. 09/10/2024 TC: CPT:91216,33570
[2024-09-09] MEDS: Cefazolin 2 GM in Syringe 10 ML IV (09:03)
[2024-09-09] MEDS: TXA 1000mg in NS100 100ml (IVPB at Incision) 660 MG IV (09:05)
[2024-09-09] MEDS: dexAMETHasone 10 MG/ML Vial IV (09:23)
[2024-09-09] MEDS: TXA 1000mg in NS100 100ml (IVPB at Closure) 660 MG IV (10:37)
[2024-09-09] MEDS: JPS (Morphine 10mg/ml) OPERA.SITE (10:44)
--- NOTE | 2024-09-09 10:48 | PCM.OPRPT ---
Operative Report (Standard) Operative Information Date of Procedure: 09/09/24 Pre-Operative Diagnosis: Right hip primary osteoarthritis Post-Operative Diagnosis: Right hip primary osteoarthritis Surgery/Procedure Performed: Right hip minimally invasive direct anterior total hip replacement technical business systems analyst: Yes Stitcher Around: Nandini Simms Tasks completed by office assistant receptionist: Other (See body of operative report) Additional speech pathologist assistant?: No Type of Anesthesia: Spinal RN Documented Start/Stop Times: Operation Date: 09/09/24 08:45 Case Time Into Pre-Op 09/09/24 07:02 Anesthesia Start 09/09/24 09:03 Into Room 09/09/24 09:03 Procedure Start 09/09/24 09:24 Procedure End 09/09/24 11:52 Anesthesia End 09/09/24 11:56 Out of Room 09/09/24 11:56 Procedure Start Time: 09:24 Procedure Stop Time: 11:52 Select all DRAINS/GRAFTS/IMPLANTS that apply: Prosthetic device Prosthetic device details: See body of operative report Special Medications: 2 g Ancef, 1 g TXA at incision, 1 g TXA closure, 10 mg Decadron, joint cocktail (5 mg Duramorph, 30 mL of 0.5% Ropivicaine, 1000 units of epinephrine, 30 mg of Toradol) Estimated Blood Loss: 600 mL Fluids Replaced: 1700 mL Specimen collected: Yes Description of specimen(s) removed: Bony cuts Description of surgery: Components used: 1. Insignia Horace femoral stem size 3 high offset 2. Horace trident 2 acetabular shell size 52 mm 3. Horace X3 polyethylene 42E 4. Horace Biolox delta 38mm, 4mm femoral head 5. Horace MDM cobalt-chromium liner noncemented alpha code E Brief history operative indications: 58 yo f who failed conservative measures for their hip osteoarthritis. X-rays were consistent with osteoarthritis including joint space narrowing, osteophyte formation and subchondral cysts. Total hip replacement was discussed with the patient with risks and benefits including but not limited to blood loss, DVTs, PEs, neurovascular damage, dislocation, general risks of anesthesia including loss of life. Patient demonstrated an understanding medical clearance is obtained the patient was consented for surgery. Procedure: On the date of procedure the patient's R hip was marked in the preoperative area. Patient was then taken back to the operating room where anesthesia assumed control of the C-spine and airway and administered anesthetic. Patient was transferred to the operating table and placed in the supine position. The hips were placed at the break of the bed and a sacral bump was placed. The R lower extremity was then prepped out in a sterile fashion using chlorhexidine while the surgeon scrubbed. The PA was vital in the positioning of the patient. Upon reentering the room the R lower extremity was draped in the standard orthopedic fashion and the incision was marked. A timeout was called and everyone agreed upon the side, the site, the procedure be performed, antibody given, and patient's identity. At this time incision was made through skin, subcutaneous tissue, and fat down to fascia. The fascia was then incised and the TFL was retracted laterally. A retractor was placed on the lateral border of the femoral neck. Attention was directed to the inferior portion of the approach and all crossing vessels were identified and appropriately coagulated. A retractor was then placed on the medial portion of the femoral neck. The anterior capsule was then cleared of all soft tissue and then H shaped capsulotomy was made. The retractors were then placed inside the capsule. The femoral neck was identified and a cleanup cut was made. At this time a power corkscrew was used to remove the femoral head. Attention was then turned toward the acetabulum where the soft tissues were appropriately retracted and the acetabulum was sequentially reamed to 52 mm. A 52 mm cup was then selected and impacted into place. Acetabular liner was impacted into place and locking mechanism was verified. The position of the acetabular cup was then verified under live fluoroscopy. Attention was then turned to the femur. Soft tissue releases on the medial and lateral femoral neck were appropriately done, the leg was externally rotated and lateralized. A Tellez retractor was placed medially and proximally to the greater trochanter this allowed appropriate visualization and exposure of the femoral canal. Rongeour was then used to remove excess lateral bone. A canal finder and entry broach were used to open the proximal canal. Once we verified we were down the femoral canal we subsequently broached up to a size 3 femur. The appropriate neck was placed in the previously selected head was trialed with a +5 mm neck. Traction was pulled and the hip was reduced with internal rotation. Once it was appropriately reduced and stability was checked. At this time we were not 1% happy with our stability. Leg lengths felt equal at the malleoli. Based on this we elected to trial MDM. MDM trial with a +4 mm neck was appropriate. We did have to remove the previously placed acetabular polyethylene liner and placed a MDM cobalt-chromium liner. There was minimal shuck, equal leg lengths and appropriate stability with hyperextension and external rotation as well as with 90? flexion and internal rotation. Fluoroscopy was then also used to verify the position of the components and leg lengths were checked using medial malleoli. The trial components were then dislocated the proximal femur was again exposed and the components were removed from the wound. The final components were verified and opened. The wound was copiously irrigated out with normal saline. The acetabulum was checked for any residual debris. The final components were placed and impacted. Traction and internal rotation were again used to reduce the hip. After adequate reduction the hip remained stable with appropriate leg lengths. The final components were once again checked with live fluoroscopy and were found to be satisfactory. The wound was then copiously irrigated with normal saline once more, and hemostasis was obtained. Closure was then done using #1 Vicryl runner to close the fascia. A 2-0 vicryl interuppted sutures were used to close the subcutaneous skin. A 2-0 nylon sutures were used for final skin closure. A Silverlon dressing was placed. Patient was awakened by anesthesia and transferred to the [facility]. Patient was then transferred to the PACU for recovery. Postoperative plan: Patient will get 24 hours postop antibiotics. Patient will get in-house physical therapy and will be weight-bear as tolerated. Patient will follow up in office in 2 weeks for a wound check and x-rays. Aspirin 81 mg twice daily. Surgical Findings: Stable hip Complications Complications: No Admit VTE Documentation VTE Present on Admission: No VTE Mechan Device Prophylaxis: SCD's and Thigh High KASHIF Hose VTE Pharm Prophylaxis ordered?: Yes
--- NOTE | 2024-09-09 12:00 | PCM.POST.ANE ---
Anesthesia: Postop Eval I Current Vital Signs Temperature: 98.3 F Pulse Rate: 98 Blood Pressure: 118/82 Respiratory Rate: 18 Pulse Ox: 93 Oxygen Delivery Method: Room Air Assessment Airway patent: Yes Spontaneous unlabored respirations: Yes Mental status: Awake nausea: No Vomiting: No Anesthesia Complication: No Fluid Hydration Crystalloid volume administer (ml): 1,700 Total IV fluid infused: 1,700 Progress Note Anesthesia document: Postop Eval 1 completed: Yes
--- NOTE | 2024-09-09 13:42 | POSTOPAN2_ITS ---
Anesthesia Postop Eval I Sum Postop Eval Completion status Anesthesia document: Postop Eval 1 completed: Yes Anesthesia Postop Eval I Summary Anesthesia Postop Eval I Summary: Anesthesia Postop Eval I: Assessment Summary Airway patent Yes 09/09/24 12:01 [email or web address] Spontaneous unlabored Yes 09/09/24 12:01 [email or web address] [email or web address] respirations Mental status Awake 09/09/24 12:01 [email or web address] nausea No 09/09/24 12:01 [email or web address] [email or web address] Vomiting No 09/09/24 12:01 [email or web address] Anesthesia Postop Eval I: Fluid Summary Crystalloid volume administer 1,700 09/09/24 12:01 [email or web address] (ml) Colloids volume administered ( ml) Blood Product volume administered (ml) Total IV fluid infused 1,700 09/09/24 12:01 [email or web address] Anesthesia Postop Eval I: Summary Notes Anesthesia Complication No 09/09/24 12:01 [email or web address] Anesthesia Complication Comment: Post-operative progress note Anesthesia: Postop Eval II Evaluation Mental status: Awake Pain Level: 0 nausea: No Vomiting: No
--- NOTE | 2024-09-09 13:42 | PCM.POSTANE2 ---
Anesthesia Postop Eval I Sum Postop Eval Completion status Anesthesia document: Postop Eval 1 completed: Yes Anesthesia Postop Eval I Summary Anesthesia Postop Eval I Summary: Anesthesia Postop Eval I: Assessment Summary Airway patent Yes 09/09/24 12:01 LEVEL VIAL INSPECTOR AND [email or web address] Spontaneous unlabored Yes 09/09/24 12:01 LEVEL VIAL INSPECTOR AND [email or web address] respirations Mental status Awake 09/09/24 12:01 LEVEL VIAL INSPECTOR [email or web address] nausea No 09/09/24 12:01 LEVEL VIAL INSPECTOR AND [email or web address] Vomiting No 09/09/24 12:01 LEVEL VIAL INSPECTOR [email or web address] Anesthesia Postop Eval I: Fluid Summary Crystalloid volume administer 1,700 09/09/24 12:01 LEVEL VIAL INSPECTOR AND [email or web address] (ml) Colloids volume administered ( ml) Blood Product volume administered (ml) Total IV fluid infused 1,700 09/09/24 12:01 LEVEL VIAL INSPECTOR [email or web address] Anesthesia Postop Eval I: Summary Notes Anesthesia Complication No 09/09/24 12:01 LEVEL VIAL INSPECTOR AND [email or web address] Anesthesia Complication Comment: Post-operative progress note Anesthesia: Postop Eval II Evaluation Mental status: Awake Pain Level: 0 nausea: No Vomiting: No
[2024-09-09] MEDS: Famotidine 20 MG Tablet PO (15:30)
--- NOTE | 2024-09-09 16:38 | CON.PCM.HO_ITS ---
HPI Consult Data Date of Consult: 09/09/24 HPI Narrative HPI Narrative: DAVID CRAVEN, is a 58 F who presents [facility] Medical History Post-menopausal Loss of hearing Wears glasses Arthritis History of echocardiogram History of stress test Hypertension Cardiology follow-up encounter GERD (gastroesophageal reflux disease) Essential hypertension Vertigo Elevated blood pressure reading in office without diagnosis of hypertension Obesity Osteoarthritis Abnormal electrocardiogram Home Medications ?Medication ?Instructions ?Recorded ?Last Taken ?Type multivitamin 1 ea PO DAILY SUPPLEMENT 09/04/24 History lisinopril 10 mg tablet 10 mg PO DAILY #90 tabs 07/1009/08/24 Rx acetaminophen 500 mg tablet 1,000 mg PO ONCE PRN pain 02/07/24 09/08/24 17:30 History amoxicillin 500 mg capsule 2,000 mg PO ONCE PRN PRIOR TO 02/07/24 Unknown History DENTAL PROCEDURE ascorbic acid (vitamin C) 1,000 mg 2 g PO DAILY 09/04/24 History tablet cholecalciferol (vitamin D3) 25 25 mcg PO DAILY 09/08/24 History mcg (1,000 unit) tablet Bacillus coagulans 250 million 2 tab PO DAILY 08/14/24 09/08/24 History cell chewable tablet (Digestive Advantage Immune) meloxicam 7.5 mg tablet 7.5 mg PO BID PRN pain 08/1409/04/24 History Allergy/AdvReac Type Severity Reaction Status Date / Time bee venom protein (honey bee) Allergy Rash Verified 09/09/24 07:19 latex Allergy Rash Verified 09/09/24 07:19 Family History Father CVA (cerebral vascular accident) Hypertension Mother Heart disease Myocardial infarction, Onset Age: 79 Grandmother Heart disease Surgical History History of colonoscopy History of total left hip arthroplasty (08/14/19) History of tonsillectomy Social History Smoking Status: Never smoker alcohol intake: current alcohol intake frequency: holidays/special occasions only substance use type: does not use caffeine: Yes Lab / Micro Data 08/22/24 11:27 08/22/24 11:27 Labs: Laboratory Results - last 24 hr 09/09/24 07:21: POC Glucose 91 Imaging Radiology Impression Hip X-Ray 09/09/24 07:12 IMPRESSION: Status post total hip replacement in anatomic position. Reading [facility]
--- NOTE | 2024-09-09 16:38 | PCM.CONS.GEN ---
Assessment & Plan Assessment/Plan (1) Status post right hip replacement: PLAN: Plan Patient is a 58-year-old female who presented [facility] on 09/09/2024 for planned right total hip replacement. Medicine consulted postoperatively for medical management. 1. Right hip primary osteoarthritis ? Orthopedic surgery primary. S/p right hip minimally invasive direct anterior total hip replacement with Dr. Arnold on 09/09. Tolerated procedure well, no intraoperative complications. Pain control, DVT prophylaxis and further postoperative management per orthopedics. PT/OT/case management following. Chronic medical conditions: ? Class III obesity: BMI 43 on admit. Complicates hospital course, care and prognosis. ? Hypertension: BP normotensive to mildly hypotensive postoperatively. Will hold home lisinopril 10 mg daily for now but should be okay to resume on discharge. DVT prophylaxis: Per orthopedics Total clinical time spent by myself addressing the patient's medical issues, reviewing all the data, and collaborating with patient's care team: 35 minutes. HPI Consult Data Date of Consult: 09/09/24 HPI Narrative Reason for Consultation: Postoperative medical management HPI Narrative: DAVID CRAVEN, is a 58 F who presented to [facility] on 09/09/2024 for planned orthopedic procedure. Medicine consulted postoperatively for medical management. Patient had right total hip replacement done with Dr. Arnold today. Tolerated procedure well, no intraoperative complications. Saw patient at bedside this afternoon. She was sitting up comfortably in bedside chair, conversing normally, in no acute distress. Denied any current hip pain or discomfort. Had just finished eating a late lunch when I saw her and tolerated this without issue. No other concerns at this time. [facility] Medical History Post-menopausal Loss of hearing Wears glasses Arthritis History of echocardiogram History of stress test Hypertension Cardiology follow-up encounter GERD (gastroesophageal reflux disease) Essential hypertension Vertigo Elevated blood pressure reading in office without diagnosis of hypertension Obesity Osteoarthritis Abnormal electrocardiogram Home Medications ?Medication ?Instructions ?Recorded ?Last Taken ?Type multivitamin 1 ea PO DAILY SUPPLEMENT 08/01/19 09/04/24 History lisinopril 10 mg tablet 10 mg PO DAILY #90 tabs 07/26/21 09/08/24 Rx acetaminophen 500 mg tablet 1,000 mg PO ONCE PRN pain 02/07/24 09/08/24 17:30 History amoxicillin 500 mg capsule 2,000 mg PO ONCE PRN PRIOR TO 02/07/24 Unknown History DENTAL PROCEDURE ascorbic acid (vitamin C) 1,000 mg 2 g PO DAILY 02/07/24 09/04/24 History tablet cholecalciferol (vitamin D3) 25 25 mcg PO DAILY 02/07/24 09/08/24 History mcg (1,000 unit) tablet Bacillus coagulans 250 million 2 tab PO DAILY 08/14/24 09/08/24 History cell chewable tablet (Digestive Advantage Immune) meloxicam 7.5 mg tablet 7.5 mg PO BID PRN pain 08/14/24 09/04/24 History Allergy/AdvReac Type Severity Reaction Status Date / Time bee venom protein (honey bee) Allergy Rash Verified 09/09/24 07:19 latex Allergy Rash Verified 09/09/24 07:19 Family History Father CVA (cerebral vascular accident) Hypertension Mother Heart disease Myocardial infarction, Onset Age: 79 Grandmother Heart disease Surgical History History of colonoscopy History of total left hip arthroplasty (08/14/19) History of tonsillectomy Social History Smoking Status: Never smoker alcohol intake: current alcohol intake frequency: holidays/special occasions only substance use type: does not use caffeine: Yes ROS Constitutional Constitutional: Denies chills, fatigue, fever(s) or weakness Cardiovascular Cardiovascular: Denies chest pain Respiratory/Chest Respiratory/Chest: Denies shortness of breath at rest Gastrointestinal Gastrointestinal: Denies abdominal pain Musculoskeletal Musculoskeletal: Denies joint pain or joint swelling Physical Exam Const alert, oriented x3 and no apparent distress Constitutional Narrative: Pleasant middle-aged female, class III obesity, sitting up comfortably in bedside chair, conversing normally, in no acute distress. General Appearance: cooperative and comfortable HEENT normocephalic, head/scalp atraumatic, hearing grossly normal bilaterally, nasal mucous membranes and turbinates normal and moist oral mucous membranes Eyes PERRL, EOMs intact bilaterally and conjunctivae normal Neck full ROM Chest inspection of chest normal Resp normal respiratory effort, normal air movement, no use of accessory muscles and clear to auscultation bilaterally Cardio regular rate, regular rhythm, no murmurs and peripheral pulses 2+ throughout GI normal to inspection, nondistended, normoactive bowel sounds, soft to palpation, non-tender and non-distended Back/Spine normal ROM Extremity Extremity Narrative: Right hip with brace and ice pack in place. Skin no rashes or lesions noted Neuro moves all extremities and no focal motor deficits Speech: speech normal Motor Exam: strength 5/5 throughout Psych mental status grossly normal Lab / Micro Data 08/22/24 11:27 08/22/24 11:27 Labs: Laboratory Results - last 24 hr 09/09/24 07:21: POC Glucose 91 Imaging Radiology Impression Hip X-Ray 09/09/24 07:12 IMPRESSION: Status post total hip replacement in anatomic position. Reading Location: [facility] Charges/Coding Visit Charges Inpatient E&M: 48918 Subs Hosp L2
[2024-09-09] MEDS: Senna/Docusate Sodium 1 Tablet 2 TABLET PO (21:38)
[2024-09-09] MEDS: Aspirin 81 MG TAB.CHEW PO (21:39)
[2024-09-10 02:53] VITALS: BP 116/73; PULSE 67; RESP 18; TEMP 36.4; O2SAT 93
[2024-09-10] MEDS: Meloxicam 7.5 MG Tablet PO (03:23)
[2024-09-10 06:10] VITALS: BP 107/72; PULSE 62; RESP 18; TEMP 36.6; O2SAT 93
[2024-09-10] MEDS: Acetaminophen 500 MG Tablet 1000 MG PO ×2 (06:13→13:30)
[2024-09-10 07:55] LABS: Hematocrit 34.2 % (37-47); Hemoglobin 11.5 g/dL (12.0-15.0); Mean Corp Hgb Conc 33.6 g/dL (32-36); Mean Corpuscular Hgb 28.6 pg (27.0-32.0); Mean Corpuscular Volume 85.1 fL (81-99); Mean Platelet Vol. 10.6 fl (6.2-12.0); Platelet Count 204 K/mm3 (150-450); RBC Distribution Width CV 13.4 % (11.6-14.6); RBC Distribution Width SD 41.6 fl (35.1-43.9); Red Blood Count 4.02 M/mm3 (4.2-5.4); White Blood Count 10.1 K/mm3 (4.4-11.0)
--- NOTE | 2024-09-10 08:02 | PCM.PN.ORT ---
Subjective Subjective Patient appears to be comfortable in bedside chair. Patient has worked with physical therapy and has been up walking to the bathroom. Patient states that she has not yet had a bowel movement. Patient states that working with physical therapy went well. Patient states that her pain is adequately controlled. Patient does admit to some lightheadedness yesterday following anesthesia but it has since resolved. Patient denies any shortness of breath, chest pain, calf pain. Patient denies any nausea, vomiting, dizziness. Patient denies any fever, chills, signs of infection. Patient denies any adverse events overnight. Objective Data Objective Data Vital Signs: Vital Signs Temp Pulse Resp BP Pulse Ox O2 Del Method O2 Flow Rate 97.9 F 62 18 107/72 93 Room Air 4 09/10/24 06:10 09/10/24 06:10 09/10/24 06:10 09/10/24 06:10 09/10/24 06:10 09/10/24 06:10 09/09/24 13:15 Oxygen Flow Rate (L/min) 4 Oxygen Delivery Method Room Air Weight: 114.475 kg Body Mass Index (BMI) 43.3 Intake & Output: Intake and Output for Last 24 Hours 09/08/24 09/09/24 09/10/24 23:59 23:59 23:59 Intake Total 3042 / 3042 600 / 600 Balance 3042 / 3042 600 / 600 Lab / Micro Data 09/10/24 07:25 08/22/24 11:27 Labs: Laboratory Results - last 24 hr 09/09/24 07:21: POC Glucose 91 09/10/24 07:25: WBC 10.1, RBC 4.02 L, Hgb 11.5 L, Hct 34.2 L, MCV 85.1, MCH 28.6, MCHC 33.6, RDW Std Deviation 41.6, RDW Coeff of Kimmy 13.4, Plt Count 204, MPV 10.6 Micro: Microbiology 08/22/24 11:27 Swab (Method) Nasal Screen MRSA/MSSA - Final Radiography Diagnostic Testing: Radiology Impression Hip X-Ray 09/09/24 07:12 IMPRESSION: Status post total hip replacement in anatomic position. Reading Location: [facility] Physical Exam Narrative 1. KASHIF hose in place bilaterally. 2. SCDs in place bilaterally. 3. Dressing is clean dry and intact. 4. Right hip is soft and supple. 5. Dorsiflexion and plantarflexion are performed actively without pain or restriction. 6. Sensation intact to light touch. 7. Neurovascularly intact. 8. Negative Homans bilaterally. Const alert, oriented x3 and no apparent distress Assessment & Plan Assessment/Plan (1) Status post right hip replacement: PLAN: Postoperative anterior right total hip arthroplasty day 1. 1. DVT prophylaxis: Patient will be taking aspirin 81 mg 2 times per day for 4 weeks postoperatively. Patient will also be wearing KASHIF hose for 2 weeks postoperatively. Patient was educated she is able to remove KASHIF hose at night. Patient was encouraged to increase movement while at home to prevent DVT. 2. Pain medications: Patient was instructed to take Tylenol 1000 mg every 8 hours taking no more than 3000 mg in 24 hours. Patient was also instructed to take meloxicam daily to help control pain. Patient was educated not to take any other anti-inflammatory medications while taking meloxicam. Patient will then be on tramadol for breakthrough pain medication. OARRS report was reviewed today. Risk of abuse potential for narcotic pain medication was discussed and reviewed. Patient was advised not to drive a motor vehicle or operate heavy equipment while taking narcotic pain medication. They were instructed to use the minimal amount of narcotic pain medication as required for the pain. Patient voiced understanding. 3. Constipation: Patient was instructed to take senna until their first bowel movement to decrease risk of impaction following surgery. Patient was instructed if they have not had a bowel movement in 3 days to call our office for reevaluation. 4. Physical therapy: Patient will be weightbearing as tolerated following anterior hip precautions. Patient does have outpatient physical therapy established. 5. H&H: 11.5/34.2. Patient is asymptomatic at this time. Hemoglobin has remained over 10 so anemia protocol does not need to be started. 6. BMP has been drawn but not yet resulted we will continue to monitor. 7. Incentive spirometry: Patient was encouraged to use incentive spirometer every hour that they are awake for the first week to exercise long and decrease risk postoperative infection. 8. Dressing: Patient was educated that she is able to get the dressing wet on postoperative day 1 and can remove the dressing on postoperative day 5. Patient is able to leave incision open to air as long as clean dry and intact. 9. Patient is to follow-up per postoperative instructions. 10. Patient will be on doxycycline 2 weeks postoperatively due to BMI. Patient was educated on the risk of sunburn while taking doxycycline and was encouraged to wear sunscreen if going to be outside in the sun. Patient was educated on taking a probiotic while taking antibiotics. 11. Patient will be on famotidine postoperatively for 30 days. 12. Medicine is on board and appreciate any recommendations from medicine at this time. 13. Patient will be discharged today as long as pain maintains adequately controlled, continues to work with and do well with physical therapy, and is okay per medicine doctors instructions and recommendations. 14. Disposition: Patient plans to go home at this time. 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 Patient states that her sister will be staying with them to help care for her mother and her. Patient states that she feels confident in going home and feels that she is ready. Patient's medication will be sent to patient's pharmacy of choice which is [facility] inpatient pharmacy. Patient is to continue to be weightbearing as tolerated with physical therapy. Patient does have outpatient physical therapy scheduled. Patient is to follow-up per postoperative instructions. Patient was encouraged to call with any questions, concerns, new problems.
--- NOTE | 2024-09-10 08:15 | PCM.DC ---
Discharge Instructions Diet Discharge Diet: No restrictions DC O2, CPAP, BIPAP needs Home O2 Discharge instructions: No Dressing / Incision Discharge Activity: May Not Drive (For 6 weeks postoperatively.) and Use Walker (Weightbearing as tolerated with walker) Weight Bearing Status: Weight bearing as tolerated (With walker.) Keep extremity elevated above heart level: Right Leg Dressing / Incision Call your doctor if your incision/area has: Continuous Slow Oozing, Sudden Increased Bleeding, Increased Pain/ Swelling, Increased Redness and Foul Smelling Discharge Call your doctor if you observe: Fever of 101 or Higher, Coldness, Increased Pain, Inability to urinate, Inability to have a bowel movement, Shortness of breath, Dizziness, Fainting spells, Chest pain, Increased palpitations (irregular heartbeat), Calf discomfort and Uncontrolled pain Remove Dressing in: 4 days (Patient is able to remove dressing on 09/14/2024.) Cleanse incision/area with: Soap & Water (Once dressing is removed can do gentle soap and water over incision as long as clean dry and intact.) Additional Dressing/Incision Instructions:: Follow [facility] Post-op Instructions. Dressing can be removed on postop day 5. Patient is able to shower on postop day 1. Do not use any ointments, Neosporin, salves, alcohol pads over the incision for 6 weeks postoperatively. Do not submerge underwater for 6 weeks postoperatively. Continue with KASHIF hose/elastic stockings for 2 weeks postoperatively. May remove at nighttime but needs to be placed back on the leg during the day. Do NOT use alcohol with narcotic pain medication. Do NOT make important decisions while taking narcotic medication. If you have problems with taking your medication (rash, itching, nausea, etc.) call the office at once. Follow Up Care Test Results: Test results from this visit will be discussed in further detail at your follow-up appointment, if applicable. Discharge Plan Admission Admit Date/Time: 09/09/24 07:11 Attending Provider: Terrance Arnold Primary Care Provider: Sheri Tobias Consulting Providers: Tesha Dyer Discharge Orders/Prescriptions Prescriptions: New acetaminophen 500 mg Tablet 1,000 mg PO Q8 Qty: 0 0RF aspirin 81 mg capsule 81 mg PO BID Qty: 0 0RF Rx Instructions: Take aspirin 81 mg 2 times daily for 4 weeks postoperatively. doxycycline monohydrate 100 mg Capsule 100 mg PO BID 14 Days Qty: 28 0RF famotidine 20 mg Tablet 20 mg PO DAILY 30 Days Qty: 30 0RF meloxicam 7.5 mg Tablet 7.5 mg PO BID 30 Days Qty: 60 0RF sennosides-docusate sodium 8.6-50 mg Tablet 2 tab PO BID 3 Days Qty: 12 0RF Rx Instructions: Take until first bowel movement and then as needed. tramadol 50 mg Tablet 50 - 100 mg PO Q6H PRN PRN (Reason: as needed for pain) 7 Days Qty: 20 0RF Continued amoxicillin 500 mg capsule 2,000 mg PO ONCE PRN (Reason: PRIOR TO DENTAL PROCEDURE) ascorbic acid (vitamin C) 1,000 mg tablet 2 g PO DAILY cholecalciferol (vitamin D3) 25 mcg (1,000 unit) tablet 25 mcg PO DAILY multivitamin 1 EACH tablet 1 ea PO DAILY Digestive Advantage Immune 250 million cell tablet,chewable 2 tab PO DAILY lisinopril 10 mg tablet 10 mg PO DAILY Qty: 90 3RF Discontinued meloxicam 7.5 mg tablet 7.5 mg PO BID PRN (Reason: pain) No Action acetaminophen 500 mg tablet 1,000 mg PO ONCE PRN (Reason: pain) Other Ambulatory Orders: 12 Lead EKG (Routine) Timeframe: 20240822 Location: None Selected Ordered By: Dr. Terrance Arnold Referrals / Follow Up: Sheri Tobias DO [Primary Care Provider] - Disposition Disposition (needs filled in before D/C Order can be placed): Home, Self Care
[2024-09-10 09:08] LABS: Anion Gap 10 (5-15); BUN 15 mg/dL (4-19); BUN/Creat Ratio 26.3 RATIO (10-20); Calcium 8.8 mg/dL (7.6-11.0); Carbon Dioxide 24.6 mmol/L (22.0-29.0); Chloride 103 mmol/L (96-108); Creatinine, Serum 0.56 mg/dL (0.70-1.20); EST Glomerular Filtration Rate 107 (>60); Estimated Creatinine Clearance 139.21 ml/min (50-250); Glucose 116 mg/dL (70-99); Potassium 4.4 mmol/L (3.3-5.1); Sodium Level 137 mmol/L (133-145)
[2024-09-10] MEDS: Senna/Docusate Sodium 1 Tablet 2 TABLET PO (09:08)
[2024-09-10] MEDS: Famotidine 20 MG Tablet PO (09:08)
[2024-09-10] MEDS: Aspirin 81 MG TAB.CHEW PO (09:08)
[2024-09-10] MEDS: Ensure Surgery 237 ML LIQUID PO ×2 (09:13→13:31)
[2024-09-10] MEDS: Cholecalciferol (VIT D3) 25 MCG TABLET (1,000 UNITS) PO (09:13)
[2024-09-10 09:22] VITALS: BP 105/66; PULSE 71; RESP 15; TEMP 36.7; O2SAT 93
--- NOTE | 2024-09-10 10:58 | CASEMGMT ---
BROOKE GARZA Assessment: Face to Face with pt for initial transition planning/care coordination assessment. BROOKE GARZA introduced self and role at [facility], pt voices understanding and consents to assessment. Pt is A&O x4 and answers all questions appropriately at this time. Pt sitting up in chair in no distress, therapy leaving room after working with pt. Care providers, pharmacy, and demographics verified/updated. Strata: 1 Admitting Dx: R total hip PCP: Jatinder Specialists: Afshin Arnold; DANIEL Preferred Pharmacy: [facility] Insurance: Self Pay Prescription Benefit: yes LNOK: Sister, Aura Living Arrangements: Pt lives with mother in a 1 story home with no steps to enter. ADLs: I at baseline with ADLs and IADLs. Transportation: Pt drives self and denies concerns with transportation. DME: [employer], Cane, Shower chair, grab bars HHC/SNF: Denies Hx of. Pt states no concerns with going home at time of dc. Pt states she has OP PT scheduled at [facility] for 09/12/24. Pt states no further concerns/needs. CM to follow. Advised pt to ask CM if any further question/concerns/needs arise, voices understanding. Pt Goal: Home Plan: Home with OP PT. Ted COX CM
--- NOTE | 2024-09-10 12:44 | PN_ITS ---
Subjective Subjective Patient seen and examined. She had no active complaints. She is postop day 1 for right hip hemiarthroplasty. Pain is well-controlled. She is using incentive spirometer. Review of systems otherwise negative. Objective Data Objective Data Vital Signs: Vital Signs Temp Pulse Resp BP Pulse Ox O2 Del Method O2 Flow Rate 98.0 F 71 15 105/66 93 Room Air 4 09/10/24 09:22 09/10/24 09:22 09/10/24 09:22 09/10/24 09:22 09/10/24 09:22 09/10/24 09:22 09/09/24 13:15 Oxygen Flow Rate (L/min) 4 Oxygen Delivery Method Room Air Weight: 252 lb 6 oz Body Mass Index (BMI) 43.3 Intake & Output: Intake and Output for Last 24 Hours 09/08/24 09/09/24 09/10/24 23:59 23:59 23:59 Intake Total 3042 / 3042 600 / 600 Balance 3042 / 3042 600 / 600 Lab / Micro Data 09/10/24 07:25 09/10/24 07:25 Labs: Laboratory Results - last 24 hr 09/10/24 07:25: WBC 10.1, RBC 4.02 L, Hgb 11.5 L, Hct 34.2 L, MCV 85.1, MCH 28.6, MCHC 33.6, RDW Std Deviation 41.6, RDW Coeff of Kimmy 13.4, Plt Count 204, MPV 10.6, Sodium 137, Potassium 4.4, Chloride Direct 103, Carbon Dioxide 24.6, Anion Gap 10, BUN 15, Creatinine 0.56 L, Estim Creat Clear Calc 139.21, Est GFR (MDRD) Non-Af 107, BUN/Creatinine Ratio 26.3 H, Glucose 116 H, Calcium 8.8 Micro: Microbiology 08/22/24 11:27 Swab (Method) Nasal Screen MRSA/MSSA - Final Radiography Diagnostic Testing: Radiology Impression Hip X-Ray 09/09/24 07:12 IMPRESSION: Status post total hip replacement in anatomic position. Reading Location: [facility] Physical Exam Const alert, oriented x3, no apparent distress and well nourished Constitutional Narrative: class III obesity General Appearance: cooperative HEENT normocephalic, head/scalp atraumatic, moist oral mucous membranes and oropharynx normal Eyes PERRL and EOMs intact bilaterally Neck no lymphadenopathy, supple and no JVD Lymph Lymphatic: no lymphadenopathy noted and no lymphedema noted Resp normal respiratory effort, normal air movement and clear to auscultation bilaterally Cardio regular rate, regular rhythm, S1 normal heart sound, S2 normal heart sound and no murmurs GI normal to inspection, nondistended, normoactive bowel sounds, soft to palpation, non-tender and non-distended Extremity no clubbing, cyanosis or edema and no calf tenderness Extremity Narrative: intact dressing over right hip General Extremity: no tenderness to palpation of joints or extremities Skin Skin Narrative: as under extremities Neuro CN's II-XII intact bilaterally, no focal motor deficits and no sensory deficits noted Motor Exam: strength 5/5 throughout and general weakness Psych thought process normal and cooperative Appearance: appropriate Assessment & Plan Assessment/Plan (1) Status post right hip replacement: (2) Essential hypertension: PLAN: Plan #Right hip osteoarthritis s/p right hip minimally invasive direct anterior total hip replacement * management as per orthopedics. * on PO tylenol, PO oxycodone and IV morphine prn for pain * incentive spirometry * fall precautions * PT/OT on board * #Hypertension * On lisinopril #Class III obesity: BMI is 43.3. Complicates acute care, expected recovery and prognosis. DVT prophylaxis: as per primary service orthopedics, on aspirin 81mg bid x 4 weeks post op and KASHIF hose x 2 weeks post op. \ Disposition: patient stable for dc from hospitalist standpoint. Charges/Coding Visit Charges Inpatient E&M: 47525 Subs Hosp L2
[2024-09-10 13:28] VITALS: BP 118/75; PULSE 71; RESP 15; TEMP 36.6; O2SAT 98
[2024-09-10] MEDS: Doxycycline 100 MG CAPSULE PO (13:30)
--- NOTE | 2024-09-10 15:51 | PHA.DC_ITS ---
Pharmacy [place] Med Reconciliation Pharmacy Service has performed discharge medication reconciliation for this patient. Medication education papers prepared, patient discharged before I was able to vocational guidance counselor. Medications reviewed. The patient's discharge medication list was reviewed for discrepancies and discrepancies were resolved. Medications at Discharge Home Medications multivitamin 1 ea PO DAILY SUPPLEMENT 08/01/19 lisinopril 10 mg tablet 10 mg PO DAILY #90 tabs 07/26/21 acetaminophen 500 mg tablet 1,000 mg PO ONCE PRN pain 02/07/24 amoxicillin 500 mg capsule 2,000 mg PO ONCE PRN PRIOR TO DENTAL PROCEDURE 02/07/24 ascorbic acid (vitamin C) 1,000 mg tablet 2 g PO DAILY 02/07/24 cholecalciferol (vitamin D3) 25 mcg (1,000 unit) tablet 25 mcg PO DAILY 02/07/24 Bacillus coagulans 250 million cell chewable tablet (Digestive Advantage Immune) 2 tab PO DAILY 08/14/24 acetaminophen 500 mg tablet 1,000 mg (2 x 500 mg) PO Q8 #0 tabs 09/10/24 aspirin 81 mg capsule 81 mg PO BID #0 caps 09/10/24 doxycycline monohydrate 100 mg capsule 100 mg PO BID 14 days #28 caps 09/10/24 famotidine 20 mg tablet 20 mg PO DAILY 30 days #30 tabs 09/10/24 meloxicam 7.5 mg tablet 7.5 mg PO BID 30 days #60 tabs 09/10/24 sennosides 8.6 mg-docusate sodium 50 mg tablet 2 tab PO BID 3 days #12 tabs 0311/01 tramadol 50 mg tablet 50 - 100 mg (1 - 2 x 50 mg) PO Q6H PRN PRN as needed for pain 7 days #20 tabs 09/10/24
== END 2024-09-10 15:44 | disposition home or self-care (01) ==
LOC: SDC 14:52 → MS3 14:52
PROVIDERS: Anesthesiology; Admitting Provider Specialist; PCP Family Medicine; Referring Provider Specialist; Visit Provider Specialist
PROC: (CPT 27284; principal; 2024-09-09 08:20)
DX: M16.11 Unilateral primary osteoarthritis, right hip (principal); E66.813 Obesity, class 3; Z68.41 Body mass index [BMI] 40.0-44.9, adult; I95.81 Postprocedural hypotension; I10 Essential (primary) hypertension; K21.9 Gastro-esophageal reflux disease without esophagitis; Z79.899 Other long term (current) drug therapy
CPT/HCPCS: 27130; 01214; 36415; 73501; 73502; 76000; 80048; 82040; 82962; 83735; 85025; 85027; 87077; 87081; 88305; 88311; 93005; 94668; 97116; 97162; 97166; 97530; 97535; 99221; C1776; G0378; J2405; J3475